=== PATIENT | female | born 1940 | race Caucasian/White ===

== ENCOUNTER 2016-07-04 17:25 | Emergency (ER) | payer MEDICARE ==
[~2016-07-04] VITALS: Ht 167.6 cm; Wt 70.3 kg
[~2016-07-04 17:25] MED LIST: ALBU17IN INH; ALEV220C2 PO; ATOR1TAB19 PO; BIMA01SOL OU; CENTTAB47 PO; HYDR-3713 PO; LEVO112T2 PO; PRIL20CA9 PO; SYMB16INH INH
[2016-07-04 17:26] VITALS: BP 145/92
[2016-07-04] MEDS ORDERED: LIDOCAINE 2% MDV 20 ML VIAL SC ONE (18:15)
[2016-07-04] MEDS ORDERED: NEOSPORIN OINT 0.9 GM PKT (FLOOR STOCK) As Ordered ONE (18:40)
[2016-07-04] MEDS ORDERED: ADACEL/BOOSTRIX VACCINE (DIPHTH/PERTUSS/ACELL/TETANUS)0.5ML SYR (90715) IM ONE (18:45)
== END 2016-07-04 19:11 | disposition home or self-care (01) ==
LOC: M ED 18:08
DX: S81.812A Laceration without foreign body, left lower leg, initial encounter (principal); S80.812A Abrasion, left lower leg, initial encounter; S80.12XA Contusion of left lower leg, initial encounter; W10.8XXA Fall (on) (from) other stairs and steps, initial encounter; Y92.018 Other place in single-family (private) house as the place of occurrence of the external cause; Y93.89 Activity, other specified; Y99.8 Other external cause status; J45.909 Unspecified asthma, uncomplicated; K21.9 Gastro-esophageal reflux disease without esophagitis; Z79.899 Other long term (current) drug therapy

== ENCOUNTER → 2016-07-29 | Outpatient (REF) | payer MEDICARE ==
[2016-07-29 20:21] LABS: MICROSCOPIC INDICATED? MAN YES (NO)
[2016-07-29 20:33] LABS: BACTERIA, URINE MOD AMOUNT; HYALINE CAST, URINE NONE SEEN /lpf (0-1); SQUAMOUS EPITHELIAL CELL URINE SMALL AMOUNT /hpf (SMALL AMT); WBC, URINE 15-20 /hpf (0-3)
[2016-07-29 20:34] LABS: MICROSCOPIC EXAM PERFORMED
== END ==
LOC: M LAB REF 17:03
PROVIDERS: ATTEND Nurse Practitioner Women's Health
DX: N39.0 Urinary tract infection, site not specified (principal)

== ENCOUNTER → 2016-08-28 | Outpatient (REF) | payer MEDICARE | LOC: M LAB REF 16:31 | PROVIDERS: ATTEND Obstetrics & Gynecology | DX: N39.0 Urinary tract infection, site not specified (principal) ==

== ENCOUNTER 2017-03-03 10:37 | Inpatient (IN) | payer MEDICARE ==
[2017-03-03] MEDS: IPRATROPIUM 0.5MG/ALBUTEROL 2.5MG INH SOL UD 3ML (DUONEB)(J7620) NEB ×5 (11:13→21:01)
[2017-03-03] MEDS: methylPREDNISolone INJ 125 MG/2 ML VIAL (J2930) IV ×2 (11:17→22:06)
[2017-03-03 11:26] LABS: BASO # 0.1 10^3/uL (0.0-0.2); BASO % 0.5 % (0.0-1.0); EOS % 0.1 % (0.0-3.0); HEMATOCRIT 44.4 % (36.0-47.0); HEMOGLOBIN 15.1 g/dl (12.0-16.0); IMMATURE GRANULOCYTE # 0.1 10^3/uL (0-0); IMMATURE GRANULOCYTE % 0.5 % (0-0); LYMPH # 0.5 10^3/uL (1.5-4.5); LYMPH % 4.5 % (24.0-44.0); MEAN CORPUSCULAR HEMOGLOBIN 31.9 pg (27.0-33.0); MEAN CORPUSCULAR VOLUME 93.7 fl (80.0-96.0); MONO # 0.7 10^3/uL (0.0-0.8); MONO % 6.3 % (0.0-5.0); NEUTROPHILS # 10.3 10^3/uL (1.8-7.7); NEUTROPHILS % 88.1 % (36.0-66.0); PLATELET COUNT, AUTOMATED 265 10^3/uL (150-450); RED BLOOD COUNT 4.74 10^6/uL (4.00-5.40); RED CELL DISTRIBUTION WIDTH 13.2 % (11.5-14.5); WHITE BLOOD COUNT 11.7 10^3/uL (4.0-10.0)
[2017-03-03 11:27] LABS: ABG BASE EXCESS -1.3 (-2.0-2.0); ABG O2 SATURATION 99.2 % (95.0-99.0); ABG PARTIAL PRESSURE CO2 33.2 mmHg (35.0-45.0); ABG PARTIAL PRESSURE O2 142.3 mmHg (75.0-100.0); ABG STANDARD HCO3 23.5 MEQ/L (22.0-26.0); ABG TOTAL CO2 23.1 MEQ/L (23.0-31.0)
[2017-03-03 11:42] LABS: ALBUMIN 3.8 GM/DL (3.2-5.2); ALBUMIN/GLOBULIN RATIO 1.09 (1.00-1.93); ALKALINE PHOSPHATASE 124 U/L (45-117); ALT/SGPT 26 U/L (12-78); ANION GAP 8 MEQ/L (8-16); AST/SGOT 20 U/L (7-37); BILIRUBIN,DIRECT 0.2 MG/DL (0.0-0.2); BILIRUBIN,TOTAL 0.6 MG/DL (0.2-1.0); BLOOD UREA NITROGEN 16 MG/DL (7-18); CALCIUM LEVEL 8.6 MG/DL (8.8-10.2); CARBON DIOXIDE LEVEL 26 MEQ/L (21-32); CHLORIDE LEVEL 105 MEQ/L (98-107); CK-MB VALUE MASS 6.2 NG/ML (0.0-3.6); CPK CREATINE PHOSPHOKINASE 221 U/L (26-192); GLOMERULAR FILTRATION RATE > 60.0 (>39); GLUCOSE, FASTING 121 MG/DL (83-110); NT-PRO BNP 208 PG/ML (<450); SODIUM LEVEL 139 MEQ/L (136-145); TOTAL PROTEIN 7.3 GM/DL (6.4-8.2); TROPONIN I < 0.02 NG/ML (< 0.10)
[2017-03-03] MEDS ORDERED: CLOBETASOL PROPIONATE EMOLLIENT 0.05% CR 60 GM TOP (14:45)
[2017-03-03] MEDS ORDERED: IPRATROPIUM 0.5MG/ALBUTEROL 2.5MG INH SOL UD 3ML (DUONEB)(J7620) NEB (14:45)
[2017-03-03] MEDS ORDERED: ONDANSETRON 4MG/2ML VIAL (J2405) IV (14:45)
[2017-03-03] MEDS ORDERED: ACETAMINOPHEN TAB 650MG DOSE (2X325MG) PO (14:45)
[2017-03-03] MEDS: AZITHROMYCIN INJ 500 MG, VIAL MATE ADAPTER 1 EACH in D5W 250 ML IV (17:53)
[2017-03-03] MEDS: ENOXAPARIN 30 MG/0.3 ML SYR (J1650) SC (17:54)
[2017-03-03] MEDS: BENZONATATE 100 MG CAP PO ×2 (17:59→22:06)
[2017-03-03 20:18] LABS: C REACTIVE PROTEIN QUANTITATIV < 0.30 MG/DL (0.00-0.30)
[2017-03-03 20:34] LABS: CK-MB VALUE MASS 4.9 NG/ML (0.0-3.6); CPK CREATINE PHOSPHOKINASE 205 U/L (26-192); MB/CK RELATIVE INDEX 2.39 (< OR =4); TROPONIN I < 0.02 NG/ML (< 0.10)
[2017-03-03] MEDS: DOCUSATE SODIUM 100 MG CAP PO (21:00)
[2017-03-03] MEDS: SYMBICORT 160/4.5MCG INHALER 6GM INH (21:06)
[2017-03-04] MEDS: IPRATROPIUM 0.5MG/ALBUTEROL 2.5MG INH SOL UD 3ML (DUONEB)(J7620) NEB ×2 (00:15→08:23)
[2017-03-04] MEDS: BENZONATATE 100 MG CAP PO ×2 (05:15→09:06)
[2017-03-04] MEDS: LEVOTHYROXINE 100MCG TABLET (0.1MG) PO (05:18)
[2017-03-04 07:54] LABS: BASO % 0.2 % (0.0-1.0); HEMATOCRIT 44.4 % (36.0-47.0); HEMOGLOBIN 14.5 g/dl (12.0-16.0); IMMATURE GRANULOCYTE # 0.1 10^3/uL (0-0); IMMATURE GRANULOCYTE % 0.7 % (0-0); LYMPH # 0.8 10^3/uL (1.5-4.5); LYMPH % 7.3 % (24.0-44.0); MEAN CORPUSCULAR HEMOGLOBIN 30.7 pg (27.0-33.0); MEAN CORPUSCULAR HGB CONC 32.7 g/dl (32.0-36.5); MEAN CORPUSCULAR VOLUME 94.1 fl (80.0-96.0); MONO % 8.7 % (0.0-5.0); NEUTROPHILS # 9.1 10^3/uL (1.8-7.7); NEUTROPHILS % 83.1 % (36.0-66.0); PLATELET COUNT, AUTOMATED 281 10^3/uL (150-450); RED BLOOD COUNT 4.72 10^6/uL (4.00-5.40); RED CELL DISTRIBUTION WIDTH 13.4 % (11.5-14.5)
[2017-03-04 07:55] LABS: ANION GAP 8 MEQ/L (8-16); BLOOD UREA NITROGEN 13 MG/DL (7-18); C REACTIVE PROTEIN QUANTITATIV < 0.30 MG/DL (0.00-0.30); CALCIUM LEVEL 8.9 MG/DL (8.8-10.2); CARBON DIOXIDE LEVEL 26 MEQ/L (21-32); CHLORIDE LEVEL 105 MEQ/L (98-107); GLOMERULAR FILTRATION RATE > 60.0 (>39); GLUCOSE, FASTING 111 MG/DL (83-110); POTASSIUM SERUM 4.2 MEQ/L (3.5-5.1); SODIUM LEVEL 139 MEQ/L (136-145)
[2017-03-04] MEDS: SYMBICORT 160/4.5MCG INHALER 6GM INH (08:23)
[2017-03-04] MEDS: ENOXAPARIN 30 MG/0.3 ML SYR (J1650) SC (09:06)
[2017-03-04] MEDS: ATORVASTATIN 10 MG TAB PO (09:06)
[2017-03-04] MEDS: predniSONE 20 MG TAB PO (09:06)
[2017-03-04] MEDS: DOCUSATE SODIUM 100 MG CAP PO (09:07)
== END 2017-03-04 11:00 | disposition home or self-care (01) | DRG 203 ==
LOC: M ED INP 03-04 10:09 → M PED 03-04 10:16 → M ED 10:37 → M ED INP 15:09 → M PED 17:11
DX: J45.901 Unspecified asthma with (acute) exacerbation (principal); E03.9 Hypothyroidism, unspecified; E78.5 Hyperlipidemia, unspecified; K44.9 Diaphragmatic hernia without obstruction or gangrene; B97.4 Respiratory syncytial virus as the cause of diseases classified elsewhere; Z79.899 Other long term (current) drug therapy

== ENCOUNTER 2017-04-19 13:05 | Emergency (ER) | payer MEDICARE ==
[2017-04-19 14:37] LABS: BASO # 0.1 10^3/uL (0.0-0.2); BASO % 1.7 % (0.0-1.0); EOS # 0.5 10^3/uL (0.0-0.50); EOS % 7.6 % (0.0-3.0); HEMATOCRIT 46.3 % (36.0-47.0); HEMOGLOBIN 15.5 g/dl (12.0-16.0); IMMATURE GRANULOCYTE % 0.1 % (0-3.0); LYMPH # 1.6 10^3/uL (1.5-4.5); LYMPH % 22.6 % (24.0-44.0); MEAN CORPUSCULAR HEMOGLOBIN 31.2 pg (27.0-33.0); MEAN CORPUSCULAR HGB CONC 33.5 g/dl (32.0-36.5); MEAN CORPUSCULAR VOLUME 93.2 fl (80.0-96.0); MONO # 0.7 10^3/uL (0.0-0.8); MONO % 10.2 % (0.0-5.0); NEUTROPHILS % 57.8 % (36.0-66.0); PLATELET COUNT, AUTOMATED 276 10^3/uL (150-450); RED BLOOD COUNT 4.97 10^6/uL (4.00-5.40); RED CELL DISTRIBUTION WIDTH 12.8 % (11.5-14.5)
[2017-04-19 15:05] LABS: ALBUMIN 4.1 GM/DL (3.2-5.2); ALBUMIN/GLOBULIN RATIO 1.21 (1.00-1.93); ALKALINE PHOSPHATASE 118 U/L (45-117); ALT/SGPT 27 U/L (12-78); ANION GAP 7 MEQ/L (8-16); AST/SGOT 23 U/L (7-37); BILIRUBIN,DIRECT 0.3 MG/DL (0.0-0.2); BILIRUBIN,TOTAL 1.1 MG/DL (0.2-1.0); BLOOD UREA NITROGEN 19 MG/DL (7-18); CALCIUM LEVEL 9.6 MG/DL (8.8-10.2); CARBON DIOXIDE LEVEL 27 MEQ/L (21-32); CHLORIDE LEVEL 105 MEQ/L (98-107); CREATININE FOR GFR 0.67 MG/DL (0.55-1.30); GLOMERULAR FILTRATION RATE > 60.0 (>39); GLUCOSE, FASTING 104 MG/DL (70-100); LIPASE 194 U/L (73-393); POTASSIUM SERUM 4.4 MEQ/L (3.5-5.1); SODIUM LEVEL 139 MEQ/L (136-145); TOTAL PROTEIN 7.5 GM/DL (6.4-8.2)
[2017-04-19] MEDS: ACETAMINOPHEN 325 MG TAB PO (15:30)
== END 2017-04-19 15:47 | disposition home or self-care (01) ==
LOC: M ED 13:05
DX: R10.30 Lower abdominal pain, unspecified (principal); R19.7 Diarrhea, unspecified; I10 Essential (primary) hypertension; R74.8 Abnormal levels of other serum enzymes; E80.6 Other disorders of bilirubin metabolism; J45.909 Unspecified asthma, uncomplicated; J44.9 Chronic obstructive pulmonary disease, unspecified; E03.9 Hypothyroidism, unspecified; K21.9 Gastro-esophageal reflux disease without esophagitis; E78.5 Hyperlipidemia, unspecified; M81.0 Age-related osteoporosis without current pathological fracture; Z87.891 Personal history of nicotine dependence
CPT/HCPCS: 83690

== ENCOUNTER → 2017-07-09 | Outpatient (CLI) | payer MEDICARE ==
[2017-07-09 15:50] LABS: BASO # 0.1 10^3/uL (0.0-0.2); BASO % 1.4 % (0.0-1.0); EOS # 0.5 10^3/uL (0.0-0.50); EOS % 7.1 % (0.0-3.0); HEMATOCRIT 45.3 % (36.0-47.0); HEMOGLOBIN 14.7 g/dl (12.0-15.5); IMMATURE GRANULOCYTE % 0.2 % (0-3.0); LYMPH # 1.5 10^3/uL (1.5-4.5); LYMPH % 23.5 % (24.0-44.0); MEAN CORPUSCULAR HEMOGLOBIN 30.7 pg (27.0-33.0); MEAN CORPUSCULAR HGB CONC 32.5 g/dl (32.0-36.5); MEAN CORPUSCULAR VOLUME 94.6 fl (80.0-96.0); MONO # 0.7 10^3/uL (0.0-0.8); MONO % 11.6 % (0.0-5.0); NEUTROPHILS # 3.6 10^3/uL (1.8-7.7); NEUTROPHILS % 56.2 % (36.0-66.0); PLATELET COUNT, AUTOMATED 275 10^3/uL (150-450); RED BLOOD COUNT 4.79 10^6/uL (4.00-5.40); RED CELL DISTRIBUTION WIDTH 12.8 % (11.5-14.5); WHITE BLOOD COUNT 6.4 10^3/uL (4.0-10.0)
[2017-07-09 16:14] LABS: ALBUMIN 3.9 GM/DL (3.2-5.2); ALBUMIN/GLOBULIN RATIO 1.08 (1.00-1.93); ALKALINE PHOSPHATASE 51 U/L (45-117); ALT/SGPT 19 U/L (12-78); ANION GAP 6 MEQ/L (8-16); AST/SGOT 20 U/L (7-37); BILIRUBIN,TOTAL 0.6 MG/DL (0.2-1.0); BLOOD UREA NITROGEN 13 MG/DL (7-18); CALCIUM LEVEL 9.3 MG/DL (8.8-10.2); CARBON DIOXIDE LEVEL 29 MEQ/L (21-32); CHLORIDE LEVEL 107 MEQ/L (98-107); CREATININE FOR GFR 0.78 MG/DL (0.55-1.30); GLOMERULAR FILTRATION RATE > 60.0 (>39); GLUCOSE, FASTING 88 MG/DL (70-100); POTASSIUM SERUM 4.2 MEQ/L (3.5-5.1); SODIUM LEVEL 142 MEQ/L (136-145); TOTAL PROTEIN 7.5 GM/DL (6.4-8.2)
== END ==
LOC: M LAB 15:19
DX: R94.5 Abnormal results of liver function studies (principal); K80.20 Calculus of gallbladder without cholecystitis without obstruction; R10.84 Generalized abdominal pain
CPT/HCPCS: 80053

== ENCOUNTER → 2017-07-16 | Outpatient (CLI) | payer MEDICARE | LOC: M RAD 07:52 | DX: R10.9 Unspecified abdominal pain (principal); K82.8 Other specified diseases of gallbladder | CPT/HCPCS: 76705 ==

== ENCOUNTER → 2017-07-28 | Outpatient (CLI) | payer MEDICARE ==
[2017-07-28 11:15] LABS: CORTISOL AM 0.6 UG/DL (4.3-22.4)
[2017-07-31 14:14] LABS: ALDOS/RENIN RATIO 3.9 (0.0-30.0); ALDOSTERONE 23.3 ng/dL (0.0-30.0); RENIN ACTIVITY 6.018 ng/mL/hr (0.167-5.380)
== END ==
LOC: M LAB 09:54
DX: E27.9 Disorder of adrenal gland, unspecified (principal)
CPT/HCPCS: 84244

== ENCOUNTER 2017-07-29 15:26 | Inpatient (IN) | payer MEDICARE ==
[2017-07-29] MEDS: LIDOCAINE 1% MDV 20ML VIAL IM (17:20)
[2017-07-29] MEDS: ONDANSETRON 4MG/2ML VIAL (J2405) IV (17:45)
[2017-07-29] MEDS: NS 1,000 ML IV ×2 (17:45→21:45)
[2017-07-29] MEDS: MORPHINE 4 MG/ML 1ML VIAL/SYRINGE (J2270) IV (17:50)
[2017-07-29 20:37] LABS: BASO # 0.1 10^3/uL (0.0-0.2); BASO % 0.7 % (0.0-1.0); EOS # 0.1 10^3/uL (0.0-0.50); EOS % 1.1 % (0.0-3.0); HEMATOCRIT 40.4 % (36.0-47.0); HEMOGLOBIN 13.3 g/dl (12.0-15.5); IMMATURE GRANULOCYTE % 0.2 % (0-3.0); LYMPH # 1.2 10^3/uL (1.5-4.5); LYMPH % 10.9 % (24.0-44.0); MEAN CORPUSCULAR HEMOGLOBIN 30.9 pg (27.0-33.0); MEAN CORPUSCULAR HGB CONC 32.9 g/dl (32.0-36.5); MONO # 0.9 10^3/uL (0.0-0.8); MONO % 7.9 % (0.0-5.0); NEUTROPHILS # 8.8 10^3/uL (1.8-7.7); NEUTROPHILS % 79.2 % (36.0-66.0); PLATELET COUNT, AUTOMATED 243 10^3/uL (150-450); RED CELL DISTRIBUTION WIDTH 12.4 % (11.5-14.5); WHITE BLOOD COUNT 11.1 10^3/uL (4.0-10.0)
[2017-07-29 21:20] LABS: ALBUMIN 3.3 GM/DL (3.2-5.2); ALKALINE PHOSPHATASE 37 U/L (45-117); ALT/SGPT 17 U/L (12-78); ANION GAP 6 MEQ/L (8-16); AST/SGOT 18 U/L (7-37); BILIRUBIN,TOTAL 0.8 MG/DL (0.2-1.0); BLOOD UREA NITROGEN 18 MG/DL (7-18); CALCIUM LEVEL 7.9 MG/DL (8.8-10.2); CARBON DIOXIDE LEVEL 26 MEQ/L (21-32); CHLORIDE LEVEL 108 MEQ/L (98-107); CREATININE FOR GFR 0.63 MG/DL (0.55-1.30); GLOMERULAR FILTRATION RATE > 60.0 (>39); GLUCOSE, FASTING 114 MG/DL (70-100); POTASSIUM SERUM 4.1 MEQ/L (3.5-5.1); SODIUM LEVEL 140 MEQ/L (136-145); TOTAL PROTEIN 6.3 GM/DL (6.4-8.2)
[2017-07-30] MEDS: NS 1,000 ML IV ×2 (01:45→05:45)
[2017-07-30] MEDS: PERCOCET 5MG/325MG TAB PO (08:42)
[2017-07-30] MEDS: PNEUMOCOCCAL VACCINE 0.5ML SYRINGE(90732) PNEUMOVAX 23 IM (08:46)
[2017-07-30] MEDS: CLOBETASOL PROPIONATE EMOLLIENT 0.05% CR 60 GM TOP (09:00)
[2017-07-30] MEDS ORDERED: ALBUTEROL 90 MCG/ACT 8GM HFA INHALER INH (12:45)
[2017-07-30] MEDS: LEVOTHYROXINE 100MCG TABLET (0.1MG) PO (14:07)
[2017-07-30] MEDS: LISINOPRIL 5 MG TAB PO (14:07)
[2017-07-30] MEDS: ENOXAPARIN 40 MG/0.4 ML SYRINGE (J1650) SC (14:08)
[2017-07-30] MEDS: SYMBICORT 160/4.5MCG INHALER 6GM INH (17:35)
[2017-07-30] MEDS: ATORVASTATIN 10 MG TAB PO (20:24)
[2017-07-31] MEDS: SYMBICORT 160/4.5MCG INHALER 6GM INH ×3 (00:25→20:21)
[2017-07-31] MEDS: LEVOTHYROXINE 100MCG TABLET (0.1MG) PO (05:18)
[2017-07-31] MEDS: PERCOCET 5MG/325MG TAB PO ×2 (08:19→18:30)
[2017-07-31] MEDS: LISINOPRIL 5 MG TAB PO (08:19)
[2017-07-31] MEDS: ENOXAPARIN 40 MG/0.4 ML SYRINGE (J1650) SC (08:20)
[2017-07-31] MEDS: CLOBETASOL PROPIONATE EMOLLIENT 0.05% CR 60 GM TOP (08:21)
[2017-07-31] MEDS: ATORVASTATIN 10 MG TAB PO (21:47)
[2017-08-01] MEDS: PERCOCET 5MG/325MG TAB PO (05:34)
[2017-08-01] MEDS: LEVOTHYROXINE 100MCG TABLET (0.1MG) PO (05:34)
[2017-08-01] MEDS: SYMBICORT 160/4.5MCG INHALER 6GM INH ×2 (07:52→21:00)
[2017-08-01 08:01] LABS: BASO # 0.1 10^3/uL (0.0-0.2); EOS # 0.3 10^3/uL (0.0-0.50); EOS % 4.9 % (0.0-3.0); HEMATOCRIT 39.5 % (36.0-47.0); HEMOGLOBIN 12.7 g/dl (12.0-15.5); IMMATURE GRANULOCYTE % 0.3 % (0-3.0); LYMPH # 1.7 10^3/uL (1.5-4.5); MEAN CORPUSCULAR HEMOGLOBIN 30.5 pg (27.0-33.0); MEAN CORPUSCULAR HGB CONC 32.2 g/dl (32.0-36.5); MONO # 0.9 10^3/uL (0.0-0.8); MONO % 12.8 % (0.0-5.0); PLATELET COUNT, AUTOMATED 229 10^3/uL (150-450); RED BLOOD COUNT 4.16 10^6/uL (4.00-5.40); RED CELL DISTRIBUTION WIDTH 12.4 % (11.5-14.5)
[2017-08-01 08:25] LABS: ALBUMIN 2.9 GM/DL (3.2-5.2); ALBUMIN/GLOBULIN RATIO 0.83 (1.00-1.93); ALKALINE PHOSPHATASE 35 U/L (45-117); ALT/SGPT 13 U/L (12-78); ANION GAP 4 MEQ/L (8-16); AST/SGOT 14 U/L (7-37); BILIRUBIN,TOTAL 0.7 MG/DL (0.2-1.0); BLOOD UREA NITROGEN 17 MG/DL (7-18); CALCIUM LEVEL 8.6 MG/DL (8.8-10.2); CARBON DIOXIDE LEVEL 29 MEQ/L (21-32); CHLORIDE LEVEL 105 MEQ/L (98-107); CREATININE FOR GFR 0.78 MG/DL (0.55-1.30); GLOMERULAR FILTRATION RATE > 60.0 (>39); GLUCOSE, FASTING 87 MG/DL (70-100); MAGNESIUM LEVEL 2.2 MG/DL (1.8-2.4); POTASSIUM SERUM 4.3 MEQ/L (3.5-5.1); SODIUM LEVEL 138 MEQ/L (136-145); TOTAL PROTEIN 6.4 GM/DL (6.4-8.2)
[2017-08-01] MEDS: CLOBETASOL PROPIONATE EMOLLIENT 0.05% CR 60 GM TOP (09:00)
[2017-08-01] MEDS: LISINOPRIL 5 MG TAB PO (09:44)
[2017-08-01] MEDS: ENOXAPARIN 40 MG/0.4 ML SYRINGE (J1650) SC (09:45)
[2017-08-01] MEDS: ATORVASTATIN 10 MG TAB PO (21:59)
[2017-08-02] MEDS: LEVOTHYROXINE 100MCG TABLET (0.1MG) PO (06:06)
[2017-08-02] MEDS: SYMBICORT 160/4.5MCG INHALER 6GM INH ×2 (08:25→20:24)
[2017-08-02] MEDS: LISINOPRIL 5 MG TAB PO (08:34)
[2017-08-02] MEDS: ENOXAPARIN 40 MG/0.4 ML SYRINGE (J1650) SC (08:34)
[2017-08-02] MEDS: CLOBETASOL PROPIONATE EMOLLIENT 0.05% CR 60 GM TOP (08:34)
[2017-08-02] MEDS: ATORVASTATIN 10 MG TAB PO (20:41)
[2017-08-03] MEDS: LEVOTHYROXINE 100MCG TABLET (0.1MG) PO (05:13)
[2017-08-03] MEDS: SYMBICORT 160/4.5MCG INHALER 6GM INH ×2 (08:20→21:10)
[2017-08-03] MEDS: CLOBETASOL PROPIONATE EMOLLIENT 0.05% CR 60 GM TOP (10:07)
[2017-08-03] MEDS: ENOXAPARIN 40 MG/0.4 ML SYRINGE (J1650) SC (10:31)
[2017-08-03] MEDS: LISINOPRIL 5 MG TAB PO (10:31)
[2017-08-03] MEDS: ATORVASTATIN 10 MG TAB PO (22:26)
[2017-08-04] MEDS: PERCOCET 5MG/325MG TAB PO ×2 (02:59→22:58)
[2017-08-04] MEDS: LEVOTHYROXINE 100MCG TABLET (0.1MG) PO (06:58)
[2017-08-04] MEDS: SYMBICORT 160/4.5MCG INHALER 6GM INH ×2 (08:31→19:43)
[2017-08-04 08:34] LABS: BASO # 0.1 10^3/uL (0.0-0.2); EOS # 0.3 10^3/uL (0.0-0.50); EOS % 5.1 % (0.0-3.0); IMMATURE GRANULOCYTE % 0.3 % (0-3.0); LYMPH # 1.3 10^3/uL (1.5-4.5); LYMPH % 21.9 % (24.0-44.0); MEAN CORPUSCULAR HEMOGLOBIN 30.6 pg (27.0-33.0); MEAN CORPUSCULAR HGB CONC 32.5 g/dl (32.0-36.5); MEAN CORPUSCULAR VOLUME 94.1 fl (80.0-96.0); MONO # 0.8 10^3/uL (0.0-0.8); MONO % 12.8 % (0.0-5.0); NEUTROPHILS # 3.5 10^3/uL (1.8-7.7); NEUTROPHILS % 58.9 % (36.0-66.0); PLATELET COUNT, AUTOMATED 246 10^3/uL (150-450); RED BLOOD COUNT 4.25 10^6/uL (4.00-5.40); RED CELL DISTRIBUTION WIDTH 12.5 % (11.5-14.5); WHITE BLOOD COUNT 5.9 10^3/uL (4.0-10.0)
[2017-08-04 08:54] LABS: ANION GAP 6 MEQ/L (8-16); BLOOD UREA NITROGEN 15 MG/DL (7-18); CALCIUM LEVEL 8.8 MG/DL (8.8-10.2); CARBON DIOXIDE LEVEL 30 MEQ/L (21-32); CHLORIDE LEVEL 104 MEQ/L (98-107); CREATININE FOR GFR 0.71 MG/DL (0.55-1.30); GLOMERULAR FILTRATION RATE > 60.0 (>39); GLUCOSE, FASTING 91 MG/DL (70-100); MAGNESIUM LEVEL 2.1 MG/DL (1.8-2.4); SODIUM LEVEL 140 MEQ/L (136-145)
[2017-08-04] MEDS: CLOBETASOL PROPIONATE EMOLLIENT 0.05% CR 60 GM TOP (09:10)
[2017-08-04] MEDS: ENOXAPARIN 40 MG/0.4 ML SYRINGE (J1650) SC (09:10)
[2017-08-04] MEDS: LISINOPRIL 5 MG TAB PO (09:10)
[2017-08-04] MEDS: ATORVASTATIN 10 MG TAB PO (22:57)
[2017-08-05 06:50] LABS: BASO # 0.1 10^3/uL (0.0-0.2); BASO % 1.1 % (0.0-1.0); EOS # 0.4 10^3/uL (0.0-0.50); EOS % 5.9 % (0.0-3.0); HEMOGLOBIN 13.7 g/dl (12.0-15.5); IMMATURE GRANULOCYTE % 0.5 % (0-3.0); LYMPH # 1.8 10^3/uL (1.5-4.5); LYMPH % 28.1 % (24.0-44.0); MEAN CORPUSCULAR HEMOGLOBIN 30.9 pg (27.0-33.0); MEAN CORPUSCULAR HGB CONC 32.6 g/dl (32.0-36.5); MEAN CORPUSCULAR VOLUME 94.8 fl (80.0-96.0); MONO # 0.8 10^3/uL (0.0-0.8); MONO % 11.9 % (0.0-5.0); NEUTROPHILS # 3.3 10^3/uL (1.8-7.7); NEUTROPHILS % 52.5 % (36.0-66.0); PLATELET COUNT, AUTOMATED 266 10^3/uL (150-450); RED BLOOD COUNT 4.43 10^6/uL (4.00-5.40); RED CELL DISTRIBUTION WIDTH 12.4 % (11.5-14.5); WHITE BLOOD COUNT 6.3 10^3/uL (4.0-10.0)
[2017-08-05] MEDS: LEVOTHYROXINE 100MCG TABLET (0.1MG) PO (06:50)
[2017-08-05 07:11] LABS: ANION GAP 8 MEQ/L (8-16); BLOOD UREA NITROGEN 17 MG/DL (7-18); CALCIUM LEVEL 8.8 MG/DL (8.8-10.2); CARBON DIOXIDE LEVEL 27 MEQ/L (21-32); CHLORIDE LEVEL 105 MEQ/L (98-107); CREATININE FOR GFR 0.71 MG/DL (0.55-1.30); GLOMERULAR FILTRATION RATE > 60.0 (>39); GLUCOSE, FASTING 92 MG/DL (70-100); MAGNESIUM LEVEL 2.3 MG/DL (1.8-2.4); POTASSIUM SERUM 4.1 MEQ/L (3.5-5.1); SODIUM LEVEL 140 MEQ/L (136-145)
[2017-08-05] MEDS: SYMBICORT 160/4.5MCG INHALER 6GM INH ×2 (07:51→09:48)
[2017-08-05] MEDS: LISINOPRIL 5 MG TAB PO (08:57)
[2017-08-05] MEDS: ENOXAPARIN 40 MG/0.4 ML SYRINGE (J1650) SC (08:59)
[2017-08-05] MEDS: CLOBETASOL PROPIONATE EMOLLIENT 0.05% CR 60 GM TOP (09:00)
[2017-08-05] MEDS: PERCOCET 5MG/325MG TAB PO (20:21)
[2017-08-05] MEDS: ATORVASTATIN 10 MG TAB PO (20:21)
[2017-08-06] MEDS: LEVOTHYROXINE 100MCG TABLET (0.1MG) PO (05:44)
[2017-08-06 06:52] LABS: BASO # 0.1 10^3/uL (0.0-0.2); BASO % 1.4 % (0.0-1.0); EOS # 0.3 10^3/uL (0.0-0.50); EOS % 6.1 % (0.0-3.0); HEMATOCRIT 38.9 % (36.0-47.0); HEMOGLOBIN 12.7 g/dl (12.0-15.5); IMMATURE GRANULOCYTE % 0.5 % (0-3.0); LYMPH # 1.6 10^3/uL (1.5-4.5); LYMPH % 28.4 % (24.0-44.0); MEAN CORPUSCULAR HEMOGLOBIN 30.6 pg (27.0-33.0); MEAN CORPUSCULAR HGB CONC 32.6 g/dl (32.0-36.5); MEAN CORPUSCULAR VOLUME 93.7 fl (80.0-96.0); MONO # 0.7 10^3/uL (0.0-0.8); MONO % 11.8 % (0.0-5.0); NEUTROPHILS # 2.9 10^3/uL (1.8-7.7); NEUTROPHILS % 51.8 % (36.0-66.0); PLATELET COUNT, AUTOMATED 240 10^3/uL (150-450); RED BLOOD COUNT 4.15 10^6/uL (4.00-5.40); RED CELL DISTRIBUTION WIDTH 12.3 % (11.5-14.5); WHITE BLOOD COUNT 5.6 10^3/uL (4.0-10.0)
[2017-08-06 07:26] LABS: ANION GAP 7 MEQ/L (8-16); BLOOD UREA NITROGEN 17 MG/DL (7-18); CALCIUM LEVEL 8.6 MG/DL (8.8-10.2); CARBON DIOXIDE LEVEL 29 MEQ/L (21-32); CHLORIDE LEVEL 105 MEQ/L (98-107); CREATININE FOR GFR 0.65 MG/DL (0.55-1.30); GLOMERULAR FILTRATION RATE > 60.0 (>39); GLUCOSE, FASTING 81 MG/DL (70-100); MAGNESIUM LEVEL 2.2 MG/DL (1.8-2.4); POTASSIUM SERUM 3.8 MEQ/L (3.5-5.1); SODIUM LEVEL 141 MEQ/L (136-145)
[2017-08-06] MEDS: SYMBICORT 160/4.5MCG INHALER 6GM INH ×2 (08:32→21:20)
[2017-08-06] MEDS: CLOBETASOL PROPIONATE EMOLLIENT 0.05% CR 60 GM TOP (09:00)
[2017-08-06] MEDS: LISINOPRIL 5 MG TAB PO (09:25)
[2017-08-06] MEDS: ENOXAPARIN 40 MG/0.4 ML SYRINGE (J1650) SC (09:27)
[2017-08-06] MEDS: ATORVASTATIN 10 MG TAB PO (19:48)
[2017-08-06] MEDS: PERCOCET 5MG/325MG TAB PO (19:48)
[2017-08-06] MEDS: BIMATOPROST EYE OU (19:50)
[2017-08-06] MEDS: OLOPATADINE EYE OU ×2 (19:50→19:51)
[2017-08-07] MEDS: LEVOTHYROXINE 100MCG TABLET (0.1MG) PO (05:09)
[2017-08-07 06:50] LABS: BASO # 0.1 10^3/uL (0.0-0.2); EOS # 0.3 10^3/uL (0.0-0.50); EOS % 5.7 % (0.0-3.0); HEMATOCRIT 40.1 % (36.0-47.0); HEMOGLOBIN 13.1 g/dl (12.0-15.5); IMMATURE GRANULOCYTE % 0.7 % (0-3.0); LYMPH # 1.5 10^3/uL (1.5-4.5); LYMPH % 25.5 % (24.0-44.0); MEAN CORPUSCULAR HEMOGLOBIN 30.8 pg (27.0-33.0); MEAN CORPUSCULAR HGB CONC 32.7 g/dl (32.0-36.5); MEAN CORPUSCULAR VOLUME 94.1 fl (80.0-96.0); MONO # 0.7 10^3/uL (0.0-0.8); MONO % 12.2 % (0.0-5.0); NEUTROPHILS # 3.3 10^3/uL (1.8-7.7); NEUTROPHILS % 54.9 % (36.0-66.0); PLATELET COUNT, AUTOMATED 259 10^3/uL (150-450); RED BLOOD COUNT 4.26 10^6/uL (4.00-5.40); RED CELL DISTRIBUTION WIDTH 12.3 % (11.5-14.5)
[2017-08-07 07:09] LABS: ANION GAP 9 MEQ/L (8-16); BLOOD UREA NITROGEN 14 MG/DL (7-18); CALCIUM LEVEL 8.6 MG/DL (8.8-10.2); CARBON DIOXIDE LEVEL 22 MEQ/L (21-32); CHLORIDE LEVEL 107 MEQ/L (98-107); CREATININE FOR GFR 0.65 MG/DL (0.55-1.30); GLOMERULAR FILTRATION RATE > 60.0 (>39); GLUCOSE, FASTING 82 MG/DL (70-100); MAGNESIUM LEVEL 2.3 MG/DL (1.8-2.4); POTASSIUM SERUM 4.4 MEQ/L (3.5-5.1); SODIUM LEVEL 138 MEQ/L (136-145)
[2017-08-07] MEDS: CLOBETASOL PROPIONATE EMOLLIENT 0.05% CR 60 GM TOP (09:00)
[2017-08-07] MEDS: SYMBICORT 160/4.5MCG INHALER 6GM INH ×2 (09:27→20:03)
[2017-08-07] MEDS: LISINOPRIL 5 MG TAB PO (09:53)
[2017-08-07] MEDS: CEPHALEXIN 500 MG CAP PO ×3 (14:12→20:39)
[2017-08-07] MEDS: ATORVASTATIN 10 MG TAB PO (20:39)
[2017-08-07] MEDS: PERCOCET 5MG/325MG TAB PO (20:39)
[2017-08-07] MEDS: OLOPATADINE EYE OU (20:39)
[2017-08-07] MEDS: BIMATOPROST EYE OU (20:39)
[2017-08-08] MEDS: LEVOTHYROXINE 100MCG TABLET (0.1MG) PO (05:13)
[2017-08-08 06:15] LABS: BASO # 0.1 10^3/uL (0.0-0.2); BASO % 1.1 % (0.0-1.0); EOS # 0.3 10^3/uL (0.0-0.50); EOS % 4.9 % (0.0-3.0); HEMATOCRIT 39.8 % (36.0-47.0); IMMATURE GRANULOCYTE % 0.3 % (0-3.0); LYMPH # 1.5 10^3/uL (1.5-4.5); LYMPH % 24.4 % (24.0-44.0); MEAN CORPUSCULAR HEMOGLOBIN 30.5 pg (27.0-33.0); MEAN CORPUSCULAR HGB CONC 32.7 g/dl (32.0-36.5); MEAN CORPUSCULAR VOLUME 93.4 fl (80.0-96.0); MONO # 0.7 10^3/uL (0.0-0.8); MONO % 11.1 % (0.0-5.0); NEUTROPHILS # 3.7 10^3/uL (1.8-7.7); NEUTROPHILS % 58.2 % (36.0-66.0); PLATELET COUNT, AUTOMATED 295 10^3/uL (150-450); RED BLOOD COUNT 4.26 10^6/uL (4.00-5.40); RED CELL DISTRIBUTION WIDTH 12.3 % (11.5-14.5); WHITE BLOOD COUNT 6.3 10^3/uL (4.0-10.0)
[2017-08-08 06:39] LABS: ANION GAP 5 MEQ/L (8-16); BLOOD UREA NITROGEN 23 MG/DL (7-18); CALCIUM LEVEL 8.8 MG/DL (8.8-10.2); CARBON DIOXIDE LEVEL 29 MEQ/L (21-32); CHLORIDE LEVEL 104 MEQ/L (98-107); CREATININE FOR GFR 0.72 MG/DL (0.55-1.30); GLOMERULAR FILTRATION RATE > 60.0 (>39); GLUCOSE, FASTING 85 MG/DL (70-100); MAGNESIUM LEVEL 2.3 MG/DL (1.8-2.4); SODIUM LEVEL 138 MEQ/L (136-145)
[2017-08-08] MEDS: CEPHALEXIN 500 MG CAP PO ×4 (08:35→20:15)
[2017-08-08] MEDS: CLOBETASOL PROPIONATE EMOLLIENT 0.05% CR 60 GM TOP (08:36)
[2017-08-08] MEDS: LISINOPRIL 5 MG TAB PO (08:36)
[2017-08-08] MEDS: SYMBICORT 160/4.5MCG INHALER 6GM INH ×2 (08:41→19:43)
[2017-08-08] MEDS: PERCOCET 5MG/325MG TAB PO ×2 (12:25→20:17)
[2017-08-08] MEDS: CALCIUM/VITAMIN D 500 MG TAB PO ×2 (12:27→20:16)
[2017-08-08] MEDS: OLOPATADINE EYE OU (20:16)
[2017-08-08] MEDS: BIMATOPROST EYE OU (20:16)
[2017-08-08] MEDS: ATORVASTATIN 10 MG TAB PO (20:16)
[2017-08-09] MEDS: LEVOTHYROXINE 100MCG TABLET (0.1MG) PO (05:45)
[2017-08-09 06:00] LABS: BASO # 0.1 10^3/uL (0.0-0.2); BASO % 1.2 % (0.0-1.0); EOS # 0.3 10^3/uL (0.0-0.50); EOS % 5.6 % (0.0-3.0); HEMATOCRIT 40.2 % (36.0-47.0); HEMOGLOBIN 13.3 g/dl (12.0-15.5); IMMATURE GRANULOCYTE % 0.3 % (0-3.0); LYMPH # 1.5 10^3/uL (1.5-4.5); LYMPH % 25.8 % (24.0-44.0); MEAN CORPUSCULAR HEMOGLOBIN 30.8 pg (27.0-33.0); MEAN CORPUSCULAR HGB CONC 33.1 g/dl (32.0-36.5); MEAN CORPUSCULAR VOLUME 93.1 fl (80.0-96.0); MONO # 0.6 10^3/uL (0.0-0.8); MONO % 10.4 % (0.0-5.0); NEUTROPHILS # 3.3 10^3/uL (1.8-7.7); NEUTROPHILS % 56.7 % (36.0-66.0); PLATELET COUNT, AUTOMATED 290 10^3/uL (150-450); RED BLOOD COUNT 4.32 10^6/uL (4.00-5.40); RED CELL DISTRIBUTION WIDTH 12.1 % (11.5-14.5); WHITE BLOOD COUNT 5.9 10^3/uL (4.0-10.0)
[2017-08-09 06:16] LABS: ANION GAP 7 MEQ/L (8-16); BLOOD UREA NITROGEN 13 MG/DL (7-18); CALCIUM LEVEL 9.7 MG/DL (8.8-10.2); CARBON DIOXIDE LEVEL 30 MEQ/L (21-32); CHLORIDE LEVEL 103 MEQ/L (98-107); CREATININE FOR GFR 0.72 MG/DL (0.55-1.30); GLOMERULAR FILTRATION RATE > 60.0 (>39); GLUCOSE, FASTING 85 MG/DL (70-100); MAGNESIUM LEVEL 1.9 MG/DL (1.8-2.4); POTASSIUM SERUM 4.1 MEQ/L (3.5-5.1); SODIUM LEVEL 140 MEQ/L (136-145)
[2017-08-09] MEDS: SYMBICORT 160/4.5MCG INHALER 6GM INH ×2 (08:31→19:53)
[2017-08-09] MEDS: CEPHALEXIN 500 MG CAP PO ×4 (09:00→20:14)
[2017-08-09] MEDS: CALCIUM/VITAMIN D 500 MG TAB PO ×2 (09:00→20:14)
[2017-08-09] MEDS: LISINOPRIL 5 MG TAB PO (09:00)
[2017-08-09] MEDS: CLOBETASOL PROPIONATE EMOLLIENT 0.05% CR 60 GM TOP (09:00)
[2017-08-09] MEDS: PERCOCET 5MG/325MG TAB PO ×2 (09:58→20:15)
[2017-08-09] MEDS: ATORVASTATIN 10 MG TAB PO (20:14)
[2017-08-09] MEDS: BIMATOPROST EYE OU (20:15)
[2017-08-09] MEDS: OLOPATADINE EYE OU (20:15)
[2017-08-10] MEDS: LEVOTHYROXINE 100MCG TABLET (0.1MG) PO (05:58)
[2017-08-10 06:58] LABS: BASO # 0.1 10^3/uL (0.0-0.2); BASO % 1.3 % (0.0-1.0); EOS # 0.4 10^3/uL (0.0-0.50); EOS % 5.8 % (0.0-3.0); HEMATOCRIT 39.8 % (36.0-47.0); HEMOGLOBIN 13.3 g/dl (12.0-15.5); IMMATURE GRANULOCYTE % 0.5 % (0-3.0); LYMPH # 1.7 10^3/uL (1.5-4.5); LYMPH % 27.2 % (24.0-44.0); MEAN CORPUSCULAR HEMOGLOBIN 30.6 pg (27.0-33.0); MEAN CORPUSCULAR HGB CONC 33.4 g/dl (32.0-36.5); MEAN CORPUSCULAR VOLUME 91.7 fl (80.0-96.0); MONO # 0.7 10^3/uL (0.0-0.8); MONO % 11.7 % (0.0-5.0); NEUTROPHILS # 3.3 10^3/uL (1.8-7.7); NEUTROPHILS % 53.5 % (36.0-66.0); PLATELET COUNT, AUTOMATED 295 10^3/uL (150-450); RED BLOOD COUNT 4.34 10^6/uL (4.00-5.40); RED CELL DISTRIBUTION WIDTH 12.2 % (11.5-14.5); WHITE BLOOD COUNT 6.2 10^3/uL (4.0-10.0)
[2017-08-10 07:13] LABS: ANION GAP 8 MEQ/L (8-16); BLOOD UREA NITROGEN 15 MG/DL (7-18); CALCIUM LEVEL 9.9 MG/DL (8.8-10.2); CARBON DIOXIDE LEVEL 27 MEQ/L (21-32); CHLORIDE LEVEL 104 MEQ/L (98-107); GLOMERULAR FILTRATION RATE > 60.0 (>39); GLUCOSE, FASTING 86 MG/DL (70-100); MAGNESIUM LEVEL 1.9 MG/DL (1.8-2.4); POTASSIUM SERUM 4.1 MEQ/L (3.5-5.1); SODIUM LEVEL 139 MEQ/L (136-145)
[2017-08-10] MEDS: SYMBICORT 160/4.5MCG INHALER 6GM INH ×2 (07:14→20:57)
[2017-08-10] MEDS: CEPHALEXIN 500 MG CAP PO ×4 (10:32→20:06)
[2017-08-10] MEDS: CALCIUM/VITAMIN D 500 MG TAB PO ×2 (10:32→20:06)
[2017-08-10] MEDS: CLOBETASOL PROPIONATE EMOLLIENT 0.05% CR 60 GM TOP (10:32)
[2017-08-10] MEDS: PERCOCET 5MG/325MG TAB PO ×2 (16:28→23:51)
[2017-08-10] MEDS: BIMATOPROST EYE OU (20:06)
[2017-08-10] MEDS: ATORVASTATIN 10 MG TAB PO (20:06)
[2017-08-10] MEDS: OLOPATADINE EYE OU (20:07)
[2017-08-11] MEDS: LEVOTHYROXINE 100MCG TABLET (0.1MG) PO (05:53)
[2017-08-11] MEDS: SYMBICORT 160/4.5MCG INHALER 6GM INH ×2 (08:39→21:20)
[2017-08-11] MEDS: CALCIUM/VITAMIN D 500 MG TAB PO ×2 (09:14→21:46)
[2017-08-11] MEDS: CEPHALEXIN 500 MG CAP PO ×4 (09:14→21:46)
[2017-08-11] MEDS: CLOBETASOL PROPIONATE EMOLLIENT 0.05% CR 60 GM TOP (09:15)
[2017-08-11] MEDS: ATORVASTATIN 10 MG TAB PO (21:46)
[2017-08-11] MEDS: PERCOCET 5MG/325MG TAB PO (21:46)
[2017-08-11] MEDS: OLOPATADINE EYE OU (21:47)
[2017-08-11] MEDS: BIMATOPROST EYE OU (21:47)
[2017-08-12] MEDS: LEVOTHYROXINE 100MCG TABLET (0.1MG) PO (05:58)
[2017-08-12] MEDS: SYMBICORT 160/4.5MCG INHALER 6GM INH ×2 (08:22→20:57)
[2017-08-12] MEDS: CLOBETASOL PROPIONATE EMOLLIENT 0.05% CR 60 GM TOP (09:00)
[2017-08-12] MEDS: CEPHALEXIN 500 MG CAP PO ×4 (09:28→20:41)
[2017-08-12] MEDS: CALCIUM/VITAMIN D 500 MG TAB PO ×2 (09:28→20:42)
[2017-08-12] MEDS: ATORVASTATIN 10 MG TAB PO (20:41)
[2017-08-12] MEDS: BIMATOPROST EYE OU (20:42)
[2017-08-12] MEDS: OLOPATADINE EYE OU (20:44)
[2017-08-13] MEDS: PERCOCET 5MG/325MG TAB PO ×2 (01:10→08:10)
[2017-08-13] MEDS: LEVOTHYROXINE 100MCG TABLET (0.1MG) PO (05:31)
[2017-08-13 07:58] LABS: HEMATOCRIT 38.9 % (36.0-47.0); HEMOGLOBIN 12.8 g/dl (12.0-15.5); MEAN CORPUSCULAR HEMOGLOBIN 30.4 pg (27.0-33.0); MEAN CORPUSCULAR HGB CONC 32.9 g/dl (32.0-36.5); MEAN CORPUSCULAR VOLUME 92.4 fl (80.0-96.0); PLATELET COUNT, AUTOMATED 303 10^3/uL (150-450); RED BLOOD COUNT 4.21 10^6/uL (4.00-5.40); RED CELL DISTRIBUTION WIDTH 12.2 % (11.5-14.5); WHITE BLOOD COUNT 5.8 10^3/uL (4.0-10.0)
[2017-08-13] MEDS: CEPHALEXIN 500 MG CAP PO ×2 (08:09→13:27)
[2017-08-13] MEDS: CALCIUM/VITAMIN D 500 MG TAB PO (08:09)
[2017-08-13] MEDS: ENOXAPARIN 40 MG/0.4 ML SYRINGE (J1650) SC (08:10)
[2017-08-13] MEDS: CLOBETASOL PROPIONATE EMOLLIENT 0.05% CR 60 GM TOP (08:10)
[2017-08-13 08:12] LABS: ANION GAP 6 MEQ/L (8-16); BLOOD UREA NITROGEN 13 MG/DL (7-18); CALCIUM LEVEL 9.1 MG/DL (8.8-10.2); CARBON DIOXIDE LEVEL 30 MEQ/L (21-32); CHLORIDE LEVEL 104 MEQ/L (98-107); GLOMERULAR FILTRATION RATE > 60.0 (>39); GLUCOSE, FASTING 84 MG/DL (70-100); MAGNESIUM LEVEL 1.9 MG/DL (1.8-2.4); POTASSIUM SERUM 3.8 MEQ/L (3.5-5.1); SODIUM LEVEL 140 MEQ/L (136-145)
[2017-08-13] MEDS: SYMBICORT 160/4.5MCG INHALER 6GM INH (08:49)
== END 2017-08-13 13:40 | DRG 563 ==
LOC: M MS5PR 08-08 17:46 → M ED 15:26 → M ED INP 19:51 → M MS5PR 23:05
PROC: 0SSFXZZ Reposition Right Ankle Joint, External Approach (ICD-10-PCS; principal; 2017-07-29)
DX: S82.841A Displaced bimalleolar fracture of right lower leg, initial encounter for closed fracture (principal); L03.115 Cellulitis of right lower limb; E78.5 Hyperlipidemia, unspecified; K82.8 Other specified diseases of gallbladder; H40.9 Unspecified glaucoma; J45.909 Unspecified asthma, uncomplicated; E03.9 Hypothyroidism, unspecified; I10 Essential (primary) hypertension; Z79.899 Other long term (current) drug therapy; W01.0XXA Fall on same level from slipping, tripping and stumbling without subsequent striking against object, initial encounter; Y92.009 Unspecified place in unspecified non-institutional (private) residence as the place of occurrence of the external cause; Y93.01 Activity, walking, marching and hiking

== ENCOUNTER 2017-08-20 13:27 | Day surgery (SDC) | payer MEDICARE ==
[~2017-08-20 13:27] MED LIST changes: -ALBU17IN INH; -ALEV220C2 PO; -ATOR1TAB19 PO; -BIMA01SOL OU; -CENTTAB47 PO; -HYDR-3713 PO; -LEVO112T2 PO; +LIDOCAINE 2% INJ 100 MG/5 ML SDV (FOR ANES.) As Ordered; +MIDAZOLAM INJ 2 MG/2 ML VIAL (J2250) As Ordered; -PRIL20CA9 PO; +PROPOFOL 200 MG/20 ML VIAL As Ordered; +ROCURONIUM BROMIDE 50 MG/5 ML VIAL As Ordered; -SYMB16INH INH; +fentaNYL 100 MCG/2 ML INJECTION (J3010) As Ordered
[2017-08-20] MEDS ORDERED: LIDOCAINE 1% MDV 20ML VIAL SQ ×4 (15:15)
[2017-08-20] MEDS: LR 1,000 ML IV ×12 (15:15→21:49)
[2017-08-20] MEDS: ceFAZolin 1GM INJ (J0690 PER 500MG) As Ordered ×4 (16:00)
[2017-08-20] MEDS ORDERED: BUPIVACAINE/DEXTROSE 0.75% 2 ML AMP As Ordered ×4 (16:19)
[2017-08-20] MEDS ORDERED: LIDOCAINE PRES-FREE 2% 10ML AMP As Ordered ×4 (16:44)
[2017-08-20] MEDS ORDERED: PHENYLephrine HCL 500 MCG/5 ML (100MCG/ML) SYRINGE (J2370) As Ordered ×4 (17:08)
[2017-08-20] MEDS ORDERED: PROPOFOL 200 MG/20 ML VIAL As Ordered ×8 (18:27→19:01)
[2017-08-20] MEDS: BUPIVACAINE HCL 0.5% 30 ML VIAL As Ordered ×4 (19:40)
[2017-08-20] MEDS ORDERED: ONDANSETRON 4MG/2ML VIAL (J2405) IV ×8 (20:00→20:45)
[2017-08-20] MEDS: fentaNYL 100 MCG/2 ML INJECTION (J3010) IV ×16 (20:10→20:32)
[2017-08-20] MEDS: PERCOCET 5MG/325MG TAB PO ×8 (20:35→21:10)
[2017-08-20] MEDS ORDERED: NORCO, ANEXSIA 5/325MG TABLET (HYDROcodone/ACETAMINOPHEN) PO ×4 (20:45)
[2017-08-20] MEDS ORDERED: PERCOCET 5MG/325MG TAB As Ordered ×4 (21:03)
[2017-08-20] MEDS: MORPHINE 4 MG/ML 1ML VIAL/SYRINGE (J2270) IV ×4 (21:48)
[2017-08-21] MEDS: NORCO, ANEXSIA 5/325MG TABLET (HYDROcodone/ACETAMINOPHEN) PO ×8 (02:05→11:58)
[2017-08-21] MEDS: MORPHINE 4 MG/ML 1ML VIAL/SYRINGE (J2270) IV ×4 (04:10)
[2017-08-21] MEDS: LR 1,000 ML IV ×4 (06:26)
[2017-08-21] MEDS: ASPIRIN 325 MG TAB PO ×4 (09:19)
== END 2017-08-21 11:25 ==
LOC: M SDC 13:27 → M MS5PR 21:25
DX: S82.51XA Displaced fracture of medial malleolus of right tibia, initial encounter for closed fracture (principal); S82.831A Other fracture of upper and lower end of right fibula, initial encounter for closed fracture; W19.XXXA Unspecified fall, initial encounter; Y92.89 Other specified places as the place of occurrence of the external cause; Y93.89 Activity, other specified; Y99.8 Other external cause status; I10 Essential (primary) hypertension; E78.00 Pure hypercholesterolemia, unspecified; E03.9 Hypothyroidism, unspecified; K44.9 Diaphragmatic hernia without obstruction or gangrene; M81.0 Age-related osteoporosis without current pathological fracture; J45.909 Unspecified asthma, uncomplicated; J44.9 Chronic obstructive pulmonary disease, unspecified; Z79.899 Other long term (current) drug therapy; Z78.0 Asymptomatic menopausal state; Z96.1 Presence of intraocular lens
CPT/HCPCS: 27814

== ENCOUNTER → 2017-09-01 | Outpatient (REF) ==
[2017-09-01 08:48] LABS: HEMATOCRIT 40.7 % (36.0-47.0); MEAN CORPUSCULAR HEMOGLOBIN 30.2 pg (27.0-33.0); MEAN CORPUSCULAR HGB CONC 31.9 g/dl (32.0-36.5); MEAN CORPUSCULAR VOLUME 94.7 fl (80.0-96.0); PLATELET COUNT, AUTOMATED 268 10^3/uL (150-450); RED CELL DISTRIBUTION WIDTH 12.7 % (11.5-14.5); WHITE BLOOD COUNT 5.6 10^3/uL (4.0-10.0)
[2017-09-01 10:15] LABS: ALBUMIN 3.2 GM/DL (3.2-5.2); ALBUMIN/GLOBULIN RATIO 0.97 (1.00-1.93); ALKALINE PHOSPHATASE 63 U/L (45-117); ALT/SGPT 14 U/L (12-78); ANION GAP 8 MEQ/L (8-16); AST/SGOT 13 U/L (7-37); BILIRUBIN,TOTAL 0.7 MG/DL (0.2-1.0); BLOOD UREA NITROGEN 11 MG/DL (7-18); CALCIUM LEVEL 9.3 MG/DL (8.8-10.2); CARBON DIOXIDE LEVEL 29 MEQ/L (21-32); CHLORIDE LEVEL 105 MEQ/L (98-107); CHOLESTEROL LEVEL 150 MG/DL (<200); CHOLESTEROL RISK RATIO 2.205 (<5); CREATININE FOR GFR 0.84 MG/DL (0.55-1.30); GLOMERULAR FILTRATION RATE > 60.0 (>39); GLUCOSE, FASTING 74 MG/DL (70-100); HDL CHOLESTEROL 68 MG/DL (>40); LDL CHOLESTEROL 61.2 MG/DL (<100); NON-HDL-C 82 MG/DL; POTASSIUM SERUM 4.4 MEQ/L (3.5-5.1); SODIUM LEVEL 142 MEQ/L (136-145); THYROID STIMULATING HORMONE 0.507 uIU/ML (0.358-3.740); TOTAL PROTEIN 6.5 GM/DL (6.4-8.2); TRIGLYCERIDES LEVEL 104 MG/DL (<150)
== END ==
LOC: SKLAB2 07:00
DX: E03.9 Hypothyroidism, unspecified (principal); E78.5 Hyperlipidemia, unspecified; I10 Essential (primary) hypertension

== ENCOUNTER → 2017-09-13 | Outpatient (CLI) | payer MEDICARE ==
[2017-09-13 21:43] LABS: HEMATOCRIT 37.8 % (36.0-47.0); HEMOGLOBIN 12.7 g/dl (12.0-15.5); MEAN CORPUSCULAR HEMOGLOBIN 31.1 pg (27.0-33.0); MEAN CORPUSCULAR HGB CONC 33.6 g/dl (32.0-36.5); MEAN CORPUSCULAR VOLUME 92.4 fl (80.0-96.0); PLATELET COUNT, AUTOMATED 241 10^3/uL (150-450); RED BLOOD COUNT 4.09 10^6/uL (4.00-5.40); RED CELL DISTRIBUTION WIDTH 12.8 % (11.5-14.5); WHITE BLOOD COUNT 9.5 10^3/uL (4.0-10.0)
== END ==
LOC: M LAB 20:30 → SKLAB2 21:13
DX: R09.3 Abnormal sputum (principal); R91.8 Other nonspecific abnormal finding of lung field
CPT/HCPCS: 71045

== ENCOUNTER → 2017-12-01 | Outpatient (REF) | payer MEDICARE ==
[2017-12-01 10:01] LABS: HEMATOCRIT 40.7 % (36.0-47.0); HEMOGLOBIN 13.3 g/dl (12.0-15.5); MEAN CORPUSCULAR HEMOGLOBIN 30.4 pg (27.0-33.0); MEAN CORPUSCULAR HGB CONC 32.7 g/dl (32.0-36.5); MEAN CORPUSCULAR VOLUME 92.9 fl (80.0-96.0); PLATELET COUNT, AUTOMATED 312 10^3/uL (150-450); RED BLOOD COUNT 4.38 10^6/uL (4.00-5.40); RED CELL DISTRIBUTION WIDTH 12.7 % (11.5-14.5); WHITE BLOOD COUNT 6.6 10^3/uL (4.0-10.0)
== END ==
LOC: SKLAB2 08:00
DX: I10 Essential (primary) hypertension (principal)
CPT/HCPCS: 85027

== ENCOUNTER → 2017-12-05 | Outpatient (REF) | payer MEDICARE ==
[2017-12-05 14:58] LABS: BASO # 0.1 10^3/uL (0.0-0.2); BASO % 1.4 % (0.0-1.0); EOS # 0.4 10^3/uL (0.0-0.50); EOS % 5.4 % (0.0-3.0); HEMATOCRIT 40.6 % (36.0-47.0); HEMOGLOBIN 13.4 g/dl (12.0-15.5); IMMATURE GRANULOCYTE % 0.2 % (0-3.0); LYMPH # 1.7 10^3/uL (1.5-4.5); LYMPH % 25.1 % (24.0-44.0); MEAN CORPUSCULAR HEMOGLOBIN 30.9 pg (27.0-33.0); MEAN CORPUSCULAR VOLUME 93.5 fl (80.0-96.0); MONO # 0.6 10^3/uL (0.0-0.8); MONO % 9.6 % (0.0-5.0); NEUTROPHILS # 3.9 10^3/uL (1.8-7.7); NEUTROPHILS % 58.3 % (36.0-66.0); PLATELET COUNT, AUTOMATED 353 10^3/uL (150-450); RED BLOOD COUNT 4.34 10^6/uL (4.00-5.40); RED CELL DISTRIBUTION WIDTH 12.9 % (11.5-14.5); WHITE BLOOD COUNT 6.7 10^3/uL (4.0-10.0)
[2017-12-05 15:07] LABS: C REACTIVE PROTEIN QUANTITATIV < 0.30 MG/DL (0.00-0.30)
[2017-12-05 15:44] LABS: ERYTHROCYTE SEDIMENTATION RATE 40 mm/hr (0-30)
== END ==
LOC: M LABDRAW1 11:32
DX: S82.841D Displaced bimalleolar fracture of right lower leg, subsequent encounter for closed fracture with routine healing (principal); X58.XXXD Exposure to other specified factors, subsequent encounter; Y92.9 Unspecified place or not applicable; Y93.9 Activity, unspecified; Y99.9 Unspecified external cause status
CPT/HCPCS: 86140

== ENCOUNTER → 2017-12-25 | Outpatient (REF) | payer MEDICARE ==
[2017-12-25 12:27] LABS: BASO # 0.1 10^3/uL (0.0-0.2); BASO % 1.2 % (0.0-1.0); EOS # 0.5 10^3/uL (0.0-0.50); EOS % 7.8 % (0.0-3.0); HEMATOCRIT 40.4 % (36.0-47.0); HEMOGLOBIN 12.8 g/dl (12.0-15.5); IMMATURE GRANULOCYTE % 0.8 % (0-3.0); LYMPH # 1.3 10^3/uL (1.5-4.5); LYMPH % 19.4 % (24.0-44.0); MEAN CORPUSCULAR HEMOGLOBIN 30.2 pg (27.0-33.0); MEAN CORPUSCULAR HGB CONC 31.7 g/dl (32.0-36.5); MEAN CORPUSCULAR VOLUME 95.3 fl (80.0-96.0); MONO # 0.8 10^3/uL (0.0-0.8); MONO % 12.5 % (0.0-5.0); NEUTROPHILS # 3.9 10^3/uL (1.8-7.7); NEUTROPHILS % 58.3 % (36.0-66.0); PLATELET COUNT, AUTOMATED 358 10^3/uL (150-450); RED BLOOD COUNT 4.24 10^6/uL (4.00-5.40); WHITE BLOOD COUNT 6.7 10^3/uL (4.0-10.0)
[2017-12-25 12:45] LABS: ERYTHROCYTE SEDIMENTATION RATE 59 mm/hr (0-30)
[2017-12-25 13:09] LABS: C REACTIVE PROTEIN QUANTITATIV 3.32 MG/DL (0.00-0.30)
== END ==
LOC: M LABDRAW1 11:50
DX: S82.841D Displaced bimalleolar fracture of right lower leg, subsequent encounter for closed fracture with routine healing (principal); X58.XXXD Exposure to other specified factors, subsequent encounter; Y92.9 Unspecified place or not applicable
CPT/HCPCS: 86140

== ENCOUNTER 2018-01-09 14:49 | Day surgery (SDC) | payer MEDICARE ==
[2018-01-09 15:33] LABS: C REACTIVE PROTEIN QUANTITATIV < 0.30 MG/DL (0.00-0.30)
[2018-01-09] MEDS ORDERED: LIDOCAINE 2% INJ 100 MG/5 ML SDV (FOR ANES.) As Ordered (16:02)
[2018-01-09] MEDS ORDERED: PROPOFOL 200 MG/20 ML VIAL As Ordered (16:02)
[2018-01-09] MEDS ORDERED: MIDAZOLAM INJ 2 MG/2 ML VIAL (J2250) As Ordered (16:02)
[2018-01-09] MEDS ORDERED: fentaNYL 100 MCG/2 ML INJECTION (J3010) As Ordered ×2 (16:02→17:55)
[2018-01-09 16:10] LABS: ERYTHROCYTE SEDIMENTATION RATE 33 mm/hr (0-30)
[2018-01-09] MEDS ORDERED: dexameTHASONE 4 MG/ML 1ML VIAL (J1100) As Ordered (16:46)
[2018-01-09] MEDS ORDERED: PHENYLephrine HCL 500 MCG/5 ML (100MCG/ML) SYRINGE (J2370) As Ordered (16:49)
[2018-01-09] MEDS ORDERED: ONDANSETRON 4MG/2ML VIAL (J2405) As Ordered (17:00)
[2018-01-09] MEDS: BUPIVACAINE HCL 0.25% 30 ML VIAL As Ordered (18:10)
[2018-01-09] MEDS ORDERED: METOCLOPRAMIDE INJ 10MG/2ML VIAL (J2765) IV (19:15)
[2018-01-09] MEDS ORDERED: fentaNYL 100 MCG/2 ML INJECTION (J3010) IV (19:15)
[2018-01-09] MEDS ORDERED: PERCOCET 5MG/325MG TAB PO (19:15)
[2018-01-09] MEDS ORDERED: ONDANSETRON 4MG/2ML VIAL (J2405) IV ×2 (19:15)
[2018-01-09] MEDS: LR 1,000 ML IV ×2 (19:15→21:44)
[2018-01-09] MEDS: NORCO, ANEXSIA 5/325MG TABLET (HYDROcodone/ACETAMINOPHEN) PO (19:51)
[2018-01-10] MEDS: NORCO, ANEXSIA 5/325MG TABLET (HYDROcodone/ACETAMINOPHEN) PO ×3 (02:09→09:54)
[2018-01-12] MEDS ORDERED: LR 1,000 ML IV (06:00)
== END 2018-01-10 11:25 | disposition home or self-care (01) ==
LOC: M SDC 14:49 → M MS4PR 20:45
DX: T84.84XA Pain due to internal orthopedic prosthetic devices, implants and grafts, initial encounter (principal); T85.79XA Infection and inflammatory reaction due to other internal prosthetic devices, implants and grafts, initial encounter; I10 Essential (primary) hypertension; E03.9 Hypothyroidism, unspecified; H40.9 Unspecified glaucoma; E78.5 Hyperlipidemia, unspecified; K57.32 Diverticulitis of large intestine without perforation or abscess without bleeding; K44.9 Diaphragmatic hernia without obstruction or gangrene; J45.909 Unspecified asthma, uncomplicated; Z79.899 Other long term (current) drug therapy; Z79.82 Long term (current) use of aspirin; Z87.81 Personal history of (healed) traumatic fracture; Z98.41 Cataract extraction status, right eye; Z98.42 Cataract extraction status, left eye; Z96.1 Presence of intraocular lens; X58.XXXA Exposure to other specified factors, initial encounter; Y93.89 Activity, other specified; Y92.89 Other specified places as the place of occurrence of the external cause; Y99.8 Other external cause status
CPT/HCPCS: 20680

== ENCOUNTER → 2018-01-14 | Outpatient (REF) | payer MEDICARE ==
[2018-01-14 14:05] LABS: ANION GAP 7 MEQ/L (8-16); BLOOD UREA NITROGEN 21 MG/DL (7-18); CALCIUM LEVEL 8.6 MG/DL (8.8-10.2); CARBON DIOXIDE LEVEL 29 MEQ/L (21-32); CHLORIDE LEVEL 103 MEQ/L (98-107); CREATININE FOR GFR 0.85 MG/DL (0.55-1.30); GLOMERULAR FILTRATION RATE > 60.0 (>39); GLUCOSE, FASTING 124 MG/DL (70-100); POTASSIUM SERUM 3.7 MEQ/L (3.5-5.1); SODIUM LEVEL 139 MEQ/L (136-145)
== END ==
LOC: M LAB REF 12:14
DX: E27.9 Disorder of adrenal gland, unspecified (principal)
CPT/HCPCS: 80048

== ENCOUNTER → 2018-01-15 | Outpatient (REF) | payer MEDICARE ==
[2018-01-24 00:57] LABS: DOPAMINE 200 ug/24 hr (0-510); DOPAMINE TOTAL URINE 250 ug/L (Undefined); EPINEPHRINE 2 ug/24 hr (0-20); EPINEPHRINE TOTAL URINE 3 ug/L (Undefined); METANEPHRINE TOTAL URINE 84 ug/L (Undefined); METANEPHRINE URINE 67 ug/24 hr (45-290); NOREPINEPHRINE 30 ug/24 hr (0-135); NOREPINEPHRINE TOTAL URINE 37 ug/L (Undefined); NORMETANEPHRINE TOTAL URINE 465 ug/L (Undefined); NORMETANEPHRINE URINE 372 ug/24 hr (82-500)
== END ==
LOC: M LAB REF 01-21 10:17
DX: E27.9 Disorder of adrenal gland, unspecified (principal)
CPT/HCPCS: 82384

== ENCOUNTER → 2018-01-26 | Outpatient (REF) | payer MEDICARE ==
[2018-01-26 16:20] LABS: ALBUMIN 3.8 GM/DL (3.2-5.2); ALBUMIN/GLOBULIN RATIO 1.03 (1.00-1.93); ALKALINE PHOSPHATASE 78 U/L (45-117); ALT/SGPT 21 U/L (12-78); ANION GAP 6 MEQ/L (8-16); AST/SGOT 17 U/L (7-37); BILIRUBIN,DIRECT 0.1 MG/DL (0.0-0.2); BILIRUBIN,TOTAL 0.4 MG/DL (0.2-1.0); BLOOD UREA NITROGEN 23 MG/DL (7-18); C REACTIVE PROTEIN QUANTITATIV 0.45 MG/DL (0.00-0.30); CARBON DIOXIDE LEVEL 30 MEQ/L (21-32); CHLORIDE LEVEL 102 MEQ/L (98-107); CREATININE FOR GFR 0.78 MG/DL (0.55-1.30); GLOMERULAR FILTRATION RATE > 60.0 (>39); GLUCOSE, FASTING 110 MG/DL (70-100); POTASSIUM SERUM 3.4 MEQ/L (3.5-5.1); SODIUM LEVEL 138 MEQ/L (136-145); TOTAL PROTEIN 7.5 GM/DL (6.4-8.2)
== END ==
LOC: M LABDRAW1 14:12
DX: Z47.89 Encounter for other orthopedic aftercare (principal)
CPT/HCPCS: 82248

== ENCOUNTER → 2018-02-03 | Outpatient (REF) | payer MEDICARE ==
[2018-02-03 18:56] LABS: APPEARANCE, URINE TURBID (CLEAR); BACTERIA, URINE AUTO 2+ (NEGATIVE); BILIRUBIN, URINE AUTO NEGATIVE (NEGATIVE); BLOOD, URINE BLOOD 3+ (NEGATIVE); COLOR, URINE AMBER (YELLOW); GLUCOSE, URINE (UA) AUTO NEGATIVE (NEGATIVE); KETONE, URINE AUTO TRACE mg/dL (NEGATIVE); LEUKOCYTE ESTERASE, URINE AUTO 2+ (NEGATIVE); MUCUS, URINE LARGE (NEGATIVE); NITRITE, URINE AUTO NEGATIVE (NEGATIVE); PROTEIN, URINE AUTO 2+ mg/dL (NEGATIVE); RBC, URINE AUTO TNTC /HPF (0-3); SPECIFIC GRAVITY URINE AUTO 1.026 (1.002-1.035); SQUAMOUS EPITHELIAL CELL UR AU 41 /HPF (0-6); WBC, URINE AUTO TNTC /HPF (0-3)
== END ==
LOC: M LAB REF 16:42
DX: N39.0 Urinary tract infection, site not specified (principal)
CPT/HCPCS: 81001

== ENCOUNTER → 2018-02-09 | Outpatient (REF) | payer MEDICARE ==
[~2018-02-09] MED LIST changes: +ALBU17IN INH; +ALEV220C2 PO; +AMLO5TAB4 PO; +ASPI81TA85 PO; +ATOR1TAB19 PO; +ATOR1TAB21 PO; +AZIT500T2 PO; +BENZ-18 PO; +BIMA01SOL OU; +CALC-190 PO; +CALCD50TA PO; +CENTTAB47 PO; +CEPA5.4L2 MT; +CEPH500C PO; +CLOB0.0548 TOP; +CLOBETASOL; +COLA100C5 PO; +ESTR1MIS PV; +HYDR-3713 PO; +LEVO100T5 PO; +LEVO112T2; +LEVO112T2 PO; -LIDOCAINE 2% INJ 100 MG/5 ML SDV (FOR ANES.) As Ordered; +LISI-542 PO; -MIDAZOLAM INJ 2 MG/2 ML VIAL (J2250) As Ordered; +NORCOTAB PO; +OLOP0.2S OU; +PERCOCET PO; +PRED10TA2 PO; +PRED20TA PO; +PRIL20CA9 PO; +PROAAER10 INH; -PROPOFOL 200 MG/20 ML VIAL As Ordered; -ROCURONIUM BROMIDE 50 MG/5 ML VIAL As Ordered; +ROLLMIS2 XX; +SIME180C PO; +SYMB16INH INH; -fentaNYL 100 MCG/2 ML INJECTION (J3010) As Ordered
[2018-02-09 12:38] LABS: BASO % 0.7 % (0.0-1.0); EOS # 0.1 10^3/uL (0.0-0.50); EOS % 1.9 % (0.0-3.0); HEMATOCRIT 40.2 % (36.0-47.0); HEMOGLOBIN 12.8 g/dl (12.0-15.5); LYMPH # 1.3 10^3/uL (1.5-4.5); LYMPH % 24.2 % (24.0-44.0); MEAN CORPUSCULAR HEMOGLOBIN 29.8 pg (27.0-33.0); MEAN CORPUSCULAR HGB CONC 31.8 g/dl (32.0-36.5); MEAN CORPUSCULAR VOLUME 93.5 fl (80.0-96.0); MONO # 0.4 10^3/uL (0.0-0.8); MONO % 6.5 % (0.0-5.0); NEUTROPHILS # 3.6 10^3/uL (1.8-7.7); NEUTROPHILS % 66.5 % (36.0-66.0); PLATELET COUNT, AUTOMATED 188 10^3/uL (150-450); WHITE BLOOD COUNT 5.4 10^3/uL (4.0-10.0)
[2018-02-09 13:23] LABS: ERYTHROCYTE SEDIMENTATION RATE 8 mm/hr (0-30)
== END ==
LOC: M SFHCPLAZ 10:03
PROVIDERS: ATTEND Internal Medicine Infectious Disease
DX: T81.49XA Infection following a procedure, other surgical site, initial encounter (principal); Y83.8 Other surgical procedures as the cause of abnormal reaction of the patient, or of later complication, without mention of misadventure at the time of the procedure

== ENCOUNTER → 2018-08-13 | Outpatient (REF) | payer MEDICARE ==
[~2018-08-13] MED LIST changes: -AMLO5TAB4 PO; +AMLO5TAB6 PO; +HYDR-3715 PO; -NORCOTAB PO
== END ==
LOC: M LABDRAW1 11:52
PROVIDERS: ATTEND Nurse Practitioner Family
DX: E27.9 Disorder of adrenal gland, unspecified (principal)

== ENCOUNTER → 2018-09-04 | Outpatient (CLI) | payer MEDICARE ==
[~2018-09-04] MED LIST changes: +ASPI-161 PO; +D-10TAB2 PO; +LEVO50TA5; +OMEP-221; +OMEP-221 PO; +SYNT50TA PO; +VITA-144
[2018-09-04 15:59] LABS: BLOOD UREA NITROGEN 19 MG/DL (7-18); CARBON DIOXIDE LEVEL 27 MEQ/L (21-32); CHLORIDE LEVEL 105 MEQ/L (98-107); CREATININE FOR GFR 0.92 MG/DL (0.55-1.30); GLOMERULAR FILTRATION RATE > 60.0 (>32); GLUCOSE, FASTING 93 MG/DL (70-100); POTASSIUM SERUM 4.4 MEQ/L (3.5-5.1); SODIUM LEVEL 139 MEQ/L (136-145)
[2018-09-17 00:06] LABS: DOPAMINE PLASMA <30 pg/mL (0-48); EPINEPHRINE PLASMA <15 pg/mL (0-62); NOREPINEPHRINE PLASMA 864 pg/mL (0-874)
== END ==
LOC: M SMT 14:45
PROVIDERS: ATTEND Urology
DX: E27.8 Other specified disorders of adrenal gland (principal)
CPT/HCPCS: 36415; 80048; 82383; 82533; 83835; G0463

== ENCOUNTER 2018-09-07 21:35 | Inpatient (IN) | payer MEDICARE ==
[~2018-09-07] VITALS: Ht 167.6 cm; Wt 65.0 kg
[~2018-09-07 21:35] MED LIST changes: -ASPI-161 PO; -D-10TAB2 PO; -ISOVUE-370 76% 100ML VIAL (Q9967) As Ordered ONE; -LEVO50TA5; -OMEP-221; -OMEP-221 PO; -SYNT50TA PO; -VITA-144
[2018-09-07] MEDS ORDERED: VITA-144 (21:47)
[2018-09-07] MEDS ORDERED: LEVO50TA5 (21:47)
[2018-09-07] MEDS ORDERED: OMEP-221 (21:47)
[2018-09-08 00:10] LABS: BASO # 0.1 10^3/uL (0.0-0.2); BASO % 0.6 % (0.0-1.0); EOS % 0.3 % (0.0-3.0); HEMATOCRIT 43.2 % (36.0-47.0); HEMOGLOBIN 14.2 g/dl (12.0-15.5); LYMPH # 1.1 10^3/uL (1.5-4.5); LYMPH % 11.4 % (24.0-44.0); MEAN CORPUSCULAR HEMOGLOBIN 30.9 pg (27.0-33.0); MEAN CORPUSCULAR HGB CONC 32.9 g/dl (32.0-36.5); MEAN CORPUSCULAR VOLUME 93.9 fl (80.0-96.0); MONO # 1.6 10^3/uL (0.0-0.8); MONO % 15.8 % (0.0-5.0); NEUTROPHILS # 7.1 10^3/uL (1.8-7.7); NEUTROPHILS % 71.7 % (36.0-66.0); PLATELET COUNT, AUTOMATED 291 10^3/uL (150-450); WHITE BLOOD COUNT 9.9 10^3/uL (4.0-10.0)
[2018-09-08 00:24] LABS: INR 1.15; PROTHROMBIN TIME 14.4 SECONDS (11.8-14.0)
[2018-09-08 00:25] LABS: PARTIAL THROMBOPLASTIN TIME 30.6 SECONDS (25.0-38.4)
[2018-09-08 00:34] LABS: ALBUMIN 3.2 GM/DL (3.2-5.2); ALT/SGPT 16 U/L (12-78); BILIRUBIN,DIRECT 0.4 MG/DL (0.0-0.2); BILIRUBIN,TOTAL 1.1 MG/DL (0.2-1.0); BLOOD UREA NITROGEN 29 MG/DL (7-18); CALCIUM LEVEL 9.5 MG/DL (8.8-10.2); CARBON DIOXIDE LEVEL 25 MEQ/L (21-32); CHLORIDE LEVEL 101 MEQ/L (98-107); CREATININE FOR GFR 0.81 MG/DL (0.55-1.30); GLOMERULAR FILTRATION RATE > 60.0 (>32); GLUCOSE, FASTING 90 MG/DL (70-100); LIPASE 121 U/L (73-393); POTASSIUM SERUM 4.1 MEQ/L (3.5-5.1); SODIUM LEVEL 137 MEQ/L (136-145); TOTAL PROTEIN 7.7 GM/DL (6.4-8.2)
[2018-09-08] MEDS: GASTROGRAFIN SOLUTION 30ML PO SCH ×4 (01:07→14:33)
--- NOTE | 2018-09-08 04:56 | REPVR ---
EXAM: CT Abdomen and Pelvis Without Contrast EXAM DATE/TIME: 09/08/2018 2:29 AM CLINICAL HISTORY: 78 years old, female; Abdominal pain; Localized; Right lower quadrant (rlq); Additional info: Rlq pain TECHNIQUE: Imaging protocol: Axial computed tomography images of the abdomen and pelvis without contrast. Coronal and sagittal reformatted images were created and reviewed. Radiation optimization: All CT scans at this facility use at least one of these dose optimization techniques: automated exposure control; mA and/or kV adjustment per patient size (includes targeted exams where dose is matched to clinical indication); or iterative reconstruction. COMPARISON: CT ABD/PEL W/IV CONTRAST ONLY 07/01/2017 2:28 PM FINDINGS: Lungs: There is compressive atelectasis in both lungs. Heart: There is distortion of the heart with anterior displacement and compression on the left atrium in particular, related to the large hernia. Mediastinum: A large hiatal hernia is again seen. There is herniation of nearly the entire stomach and a portion of the transverse colon. Liver: There is a heterogeneous decreased attenuation mass at the right lobe of the liver which seems to involve the liver parenchyma and extends through the capsule of the liver, measuring 8.4 x 5.5 x 7.0 cm. Only a small nodular lesion was present at the capsule of the liver on the prior exam. There is an trace of fluid adjacent to the inferior tip of the liver. Gallbladder and bile ducts: There is calcification of the wall of the gallbladder, also seen previously. There is no biliary ductal dilation. Pancreas: The pancreas appears unremarkable. Spleen: The spleen is normal. Adrenals: The right adrenal gland is not identified separate from the lesion which also involves the right lobe of the liver. The left adrenal gland appears unremarkable. Kidneys and ureters: There is excreted IV contrast in the renal collecting systems and in the bladder. Stomach and bowel: Herniation of the stomach and a portion of transverse colon into a large hiatal hernia again noted. Mild diverticulosis is present in the distal colon. There is no dilation or thickening of the colon. The small bowel appears unremarkable. Appendix: The appendix is not specifically identified. Intraperitoneal space: There is a trace of free fluid in the pelvis. There is no free intraperitoneal air. Vasculature: There is tortuosity and mild calcification of the abdominal aorta. Lymph nodes: There are mildly enlarged right anterior diaphragmatic lymph nodes, with the largest measuring 8 mm in diameter, increased from 6 mm on the prior exam. Bladder: There is dense excreted contrast in the bladder. The bladder appears unremarkable. Reproductive: A pessary is noted in the pelvis. There is a globular soft tissue mass in the midline and right side of the pelvis. The uterus was present and mildly lobular on the prior exam, but the mass seen currently is larger than the uterus previously. Current measurements are 8.4 cm transverse by 10.0 cm AP by 6.6 cm craniocaudal. Bones/joints: Degenerative endplate changes are seen at multiple levels in the visualized spine. There is a rightward convex curvature in the lumbar spine. Impression: Soft tissues: There is a lobular soft tissue mass in the left subdiaphragmatic region, superior to the spleen, and measuring 5.9 x 3.5 cm which previously measured 1.5 x 1.0 cm. See Reproductive findings. IMPRESSION: 1. Lobular soft tissue masses in the abdomen and pelvis, including a mass which involves the right lobe of the liver and the right adrenal gland, a left subdiaphragmatic mass, and a mass in the pelvis which may originate in or involve the uterus. This is consistent with a malignancy, but the primary malignancy is uncertain. Additional history was provided that the patient had a known adrenal mass. 2. Large hiatal hernia containing nearly the entire stomach and a portion of the transverse colon, with associated displacement and compression of the heart and compressive atelectasis in both lung bases. 3. Porcelain gallbladder again noted. Findings were discussed with RUT ALCARAZ at 09/08/2018 4:53 AM EDT. COMMENT: Consistent with the [employer]'s Incidental Findings Committee Report (J Am Linwood Radiol 2010): Unless the patient's specific circumstances suggest otherwise, any liver lesion 0.5 cm or less, any cystic kidney lesion less than 1.0 cm, and/or any adrenal lesion 1.0 cm or less not otherwise characterized in this report as possessing suspicious or indeterminate imaging features is/are highly likely to be benign and do not require follow-up imaging or biopsy. Electronically signed by: Lacey Burdick On 09/08/2018 04:56:12 AM
[2018-09-08] MEDS ORDERED: ACETAMINOPHEN TAB 650MG DOSE (2X325MG) PO PRN (05:30)
[2018-09-08] MEDS ORDERED: ESTR1MIS PV (05:40)
[2018-09-08] MEDS ORDERED: ATOR1TAB19 PO (05:40)
[2018-09-08] MEDS ORDERED: SYNT50TA PO (05:40)
[2018-09-08] MEDS ORDERED: D-10TAB2 PO (05:40)
[2018-09-08] MEDS ORDERED: OMEP-221 PO (05:40)
[2018-09-08] MEDS ORDERED: ASPI-161 PO (05:40)
[2018-09-08] MEDS ORDERED: ALBUTEROL 90 MCG/ACT 8GM HFA INHALER INH PRN (06:00)
--- NOTE | 2018-09-08 06:04 | HPEPDOC ---
General Date of Admission Sep 08, 2018 at 05:30 Date of Service: Sep 08, 2018 Chief Complaint The patient is a 78-year-old female admitted with a reason for visit of Generalized Swelling, Mass, Or Lump Of Abdomen. History of Present Illness 78-year-old female with past medical history of hypertension, hypothyroidism, dyslipidemia, asthma, GERD, and known right adrenal mass presents to the ER with a chief complaint of right lower quadrant abdominal pain for the past 7 days. The patient states that this has been progressing over the last 7 days, as she endorses a decreased appetite due to the same. She denies any fevers, chills, chest pain, palpitations, weight loss, ingestion of foreign foods, sick contacts, recent travel, or any nausea/vomiting/diarrhea. Of note, the patient states that this was initially worked up in June 2017 when she had a CT scan of the abdomen/pelvis ordered during an ER visit. At that time, the patient was noted to have a 2.8 x 1.3 cm right adrenal mass and a porcelain gallbladder noted. The patient tells me that she was referred to general surgeon Dr. Carter and Weatherization And Housing Inspector Dr. Banegas regarding the aforementioned findings as an outpatient, after being seen by them, she was subsequently referred to Dr. Garcia of Urology. She has yet to be seen by Urology at this time. In the ER, a CT scan of the abdomen/pelvis revealed lobular soft tissue masses in the abdomen and pelvis including a mass which involves the right lobe of the liver and the right adrenal gland, a left subdiaphragmatic mass, and a mass in the pelvis which may originate in or involved the uterus. This is thought to be consistent with a malignancy with an uncertain primary according to the report. The patient will be admitted to the hospitalist service for further evaluation and management. Home Medications Scheduled Amlodipine Besylate (Amlodipine Besylate) 5 Mg Tab, 5 MG PO DAILY, (Reported) Aspirin (Aspirin EC) 81 Mg Tablet.dr, 81 MG PO DAILY, (Reported) Atorvastatin Calcium (Atorvastatin Calcium) 10 Mg Tablet, 10 MG PO QHS, (Reported) Bimatoprost (Lumigan) 50 Drop/2.5 Ml Lyudmila, 1 DROP OU QHS, (Reported) Budesonide/Formoterol (Symbicort 160-4.5 Mcg Inhaler) 60 Puff/Inhaler Aers, 2 PUFF INH BID, (Reported) Calcium Carbonate/Vitamin D3 (Calcium 1,000 + D3 Caplet) 1 Tab Tab, 1 TAB PO DAILY, (Reported) Cholecalciferol (Vitamin D3) (Vitamin D3) 1,000 Unit Tablet, 1,000 UNIT PO DAILY, (Reported) Clobetasol Propionate/Emoll (Clobetasol Emollient 0.05% Crm) 0.05 % Cre, 1 DOSE TOP DAILY, (Reported) APPLIES TO GROIN Estradiol (Estring) 2 Mg Vag.ring, 1 RING PV Q3M, (Reported) Levothyroxine Sodium (Synthroid) 50 Mcg Tablet, 50 MCG PO DAILY, (Reported) Omeprazole (Omeprazole) 40 Mg Capsule.dr, 40 MG PO DAILY, (Reported) Scheduled PRN Albuterol Sulfate (Proair Hfa) 108 Mcg/Act Aer, 2 PUFF INH Q4H PRN for SHORTNESS OF BREATH, (Reported) Olopatadine HCl (Olopatadine HCl) 0.2 % Lyudmila, 1 DROP OU QHS PRN for ITCHING, (Reported) Allergies Coded Allergies: No Known Allergies (Unverified , 09/07/18) Past Medical History Medical History As noted in HPI. Surgical History Right ankle surgery Family History Patient's mother had history of breast and uterine cancer. No other family members known to have malignancy according to the patient. Social History * Smoker: Denies Alcohol: occationally (patient states that she has a glass of wine on occasion) Drugs: denies Lives at home by herself. Functionally independent at baseline. Has a daughter that lives in the [facility]. Review of Systems Other systems 10 point review of systems negative unless otherwise specified in HPI. Physical Examination General Exam: Positive: Alert, Cooperative, No Acute Distress ENT Exam: Positive: Atraumatic, Mucous membr. moist/pink Neck Exam: Negative: JVD Chest Exam: Positive: Clear to auscultation, Normal air movement Heart Exam: Positive: Rate Normal, Normal S1, Normal S2 Abdomen Exam: Positive: Soft, Tenderness (tenderness to deep palpation localized in the right lower quadrant. No rebound tenderness, guarding, or rigidity noted.) Extremity Exam: Negative: Tenderness, Swelling Psych Exam: Positive: Oriented x 3 Vital Signs Vital Signs Date Time Temp Pulse Resp B/P (MAP) Pulse Ox O2 Delivery O2 Flow Rate FiO2 09/08/18 04:00 89 112/82 (92) 95 09/08/18 01:30 18 Room Air 09/07/18 21:36 98.1 Laboratory Data Labs 24H Laboratory Tests 2 09/07/18 23:40: Immature Granulocyte % (Auto) 0.2, White Blood Count 9.9, Red Blood Count 4.60, Hemoglobin 14.2, Hematocrit 43.2, Mean Corpuscular Volume 93.9, Mean Corpuscular Hemoglobin 30.9, Mean Corpuscular Hemoglobin Concent 32.9, Red Cell Distribution Width 13.6, Platelet Count 291, Neutrophils (%) (Auto) 71.7H, Lymphocytes (%) (Auto) 11.4L, Monocytes (%) (Auto) 15.8H, Eosinophils (%) (Auto) 0.3, Basophils (%) (Auto) 0.6, Neutrophils # (Auto) 7.1, Lymphocytes # (Auto) 1.1L, Monocytes # (Auto) 1.6H, Eosinophils # (Auto) 0.0, Basophils # (Auto) 0.1, Nucleated Red Blood Cells % (auto) 0.0, Prothrombin Time 14.4H, Prothromb Time International Ratio 1.15, Activated Partial Thromboplast Time 30.6, Anion Gap 11, Glomerular Filtration Rate > 60.0, Lactic Acid Level 1.2, Calcium Level 9.5, Aspartate Amino Transf (AST/SGOT) 19, Alanine Aminotransferase (ALT/SGPT) 16, Alkaline Phosphatase 93, Total Bilirubin 1.1H, Direct Bilirubin 0.4H, Total Protein 7.7, Albumin 3.2, Albumin/Globulin Ratio 0.71L, Lipase 121 CBC/BMP Laboratory Tests 09/07/18 23:40 Red Blood Count 4.60, Mean Corpuscular Volume 93.9, Mean Corpuscular Hemoglobin 30.9, Mean Corpuscular Hemoglobin Concent 32.9, Red Cell Distribution Width 13.6, Neutrophils (%) (Auto) 71.7 H, Lymphocytes (%) (Auto) 11.4 L, Monocytes (%) (Auto) 15.8 H, Eosinophils (%) (Auto) 0.3, Basophils (%) (Auto) 0.6, Neutrophils # (Auto) 7.1, Lymphocytes # (Auto) 1.1 L, Monocytes # (Auto) 1.6 H, Eosinophils # (Auto) 0.0, Basophils # (Auto) 0.1 Microbiology Microbiology 09/07/18 Blood Culture, Received Pending 09/07/18 Blood Culture, Received Pending Plan / VTE VTE Prophylaxis Ordered?: Yes Plan Plan Masses suspicious for Malignancy noted on CT/Abd Pel CT scan of the abdomen/pelvis revealed lobular soft tissue masses in the abdomen and pelvis including a mass which involves the right lobe of the liver and the right adrenal gland, a left subdiaphragmatic mass, and a mass in the pelvis which may originate in or involved the uterus. This is thought to be consistent with a malignancy with an uncertain primary according to the report. CT Chest with no acute findings for Mets or primary of the lungs Tumor Markers ordered Consider Urology, Oncology consultation in the AM regarding further investigation Hypertension, stable Continue Norvasc Dyslipidemia Continue statin Hypothyroidism Continue levothyroxine Asthma, stable Continue albuterol when necessary, Symbicort GERD Continue PPI DVT prophylaxis Lovenox subcutaneous MARGARITA VITAL MD Sep 08, 2018 06:04
[2018-09-08] MEDS: SYMBICORT 160/4.5MCG INHALER 6GM INH SCH (09:02)
[2018-09-08] MEDS: ENOXAPARIN 40 MG/0.4 ML SYRINGE (J1650) SC SCH (09:11)
[2018-09-08] MEDS: VITAMIN D 1,000 INTERNATIONAL UNITS TABLET PO SCH (09:11)
[2018-09-08] MEDS: LEVOTHYROXINE 50MCG TABLET (0.05MG) PO SCH (09:11)
[2018-09-08] MEDS: OMEPRAZOLE 20 MG CAP PO SCH (09:13)
[2018-09-08] MEDS: amLODIPine 5 MG TAB PO SCH (09:14)
[2018-09-08 10:42] LABS: CA19-9 TUMOR MARKER,CARBOHYDRA 8.2 U/ML (<35.0)
--- NOTE | 2018-09-08 15:12 | IPNPDOC ---
Text Note Date of Service The patient was seen on 09/08/18. NOTE Subjective: Patient is an 78-year-old female with a PMHx of HTN, Hypothyroidism, DLP, Asthma, GERD, Hx of R adrenal mass who presented to the ER with complaints of right lower quadrant abdominal pain for 7 days. Patient had reported decreased appetite. 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 She was advised to follow up with general surgeon Dr. Carter and Patient Safety Sitter Dr. Banegas. . She had followed up with them appropriately and was directed to Dr. Garcia of urology. In the ER, a CT scan of the abdomen/pelvis revealed lobular soft tissue masses in the abdomen and pelvis including a mass which involves the right lobe of the liver and the right adrenal gland, a left subdiaphragmatic mass, and a mass in the pelvis which may originate in or involved the uterus. This is thought to be consistent with a malignancy with an uncertain primary according to the report. The patient will be admitted to the hospitalist service for further evaluation and management. Patient was seen and examined at the bedside. Currently patient still reports abdominal pain. She denies nausea, vomiting, chest pain, shortness of breath or palpitations. She denies any diarrhea. Denies any discomfort with urination. I have advised her that I have contacted urology. Objective: Vitals (See below) General: Lying in bed, no acute distress, comfortable, AAOx3 HEENT: NC, AT CVS: RRR, +S1S2 Lungs: Fair air entry b/l, -w/r/r Abdomen: Soft, ND, mild tenderness on deep palpation at RLQ Extremities: - Edema, - Calf tenderness Assessment and plan: Masses suspicious for Malignancy noted on CT/Abd Pel - Presented to the ER with complaints of abdominal pain - Physical does reveal some abdominal tenderness - CT scan of the abdomen/pelvis revealed lobular soft tissue masses in the abdomen and pelvis including a mass which involves the right lobe of the liver and the right adrenal gland, a left subdiaphragmatic mass, and a mass in the pel vis which may originate in or involved the uterus. This is thought to be consistent with a malignancy with an uncertain primary according to the report. - CT Chest with no acute findings for Mets or primary of the lungs - Tumor Markers pending - Consulted urology; plan for additional CT imaging of abdomen with contrast; echo vasc tech has notified me that CT with contrast will be delayed in light of recently received contrast from chest CT HTN - BP well controlled - Continue with Norvasc Dyslipidemia - Continue with Atorvastatin Hypothyroidism - Continue with levothyroxine Ashtma - No signs of exacerbation - Continue with inhaled therapy as ordered GERD - c/w Omeprazole DVT prophylaxis - c/w Lovenox VS,Fishbone, I+O VS, Fishbone, I+O Laboratory Tests 09/07/18 23:40 Red Blood Count 4.60, Mean Corpuscular Volume 93.9, Mean Corpuscular Hemoglobin 30.9, Mean Corpuscular Hemoglobin Concent 32.9, Red Cell Distribution Width 13.6, Neutrophils (%) (Auto) 71.7 H, Lymphocytes (%) (Auto) 11.4 L, Monocytes (%) (Auto) 15.8 H, Eosinophils (%) (Auto) 0.3, Basophils (%) (Auto) 0.6, Neutrophils # (Auto) 7.1, Lymphocytes # (Auto) 1.1 L, Monocytes # (Auto) 1.6 H, Eosinophils # (Auto) 0.0, Basophils # (Auto) 0.1 Vital Signs Date Time Temp Pulse Resp B/P (MAP) Pulse Ox O2 Delivery O2 Flow Rate FiO2 09/08/18 12:11 98.2 91 19 133/72 (92) 95 Room Air AHSAN WALDROP MD Sep 08, 2018 15:12
[2018-09-08] MEDS ORDERED: ISOVUE-370 76% 100ML VIAL (Q9967) As Ordered ONE (18:04)
--- NOTE | 2018-09-08 19:56 | REPVR ---
EXAM: CT Abdomen and Pelvis With Contrast EXAM DATE/TIME: 09/08/2018 6:27 PM CLINICAL HISTORY: 78 years old, female; Abdominal pain; Additional info: Triple phase to look at liver mass TECHNIQUE: Imaging protocol: Axial computed tomography images of the abdomen and pelvis with intravenous contrast. Coronal and sagittal reformatted images were created and reviewed. Radiation optimization: All CT scans at this facility use at least one of these dose optimization techniques: automated exposure control; mA and/or kV adjustment per patient size (includes targeted exams where dose is matched to clinical indication); or iterative reconstruction. Contrast material: ISO 370; Contrast volume: 100 ml; Contrast route: IV; COMPARISON: CT ABD/PEL W/PO CONTRAST ONLY 09/08/2018 2:28 AM FINDINGS: Lungs: Subpleural atelectasis noted in the anterior basal segment of the left lower lobe. Pleural space: This is small pleural effusion at the right lung base with compression atelectasis predominantly involving the medial basal segment of the right lower lobe. Liver: There is a heterogeneously enhancing mass contiguous with the capsule of the right lobe of the liver posteriorly. The mass measures approximately 11 cm superior to inferior by 6.1 cm transversely by 6.4 cm anterior posterior. Gallbladder and bile ducts: The wall of the gallbladder is calcified. Pancreas: Normal. No ductal dilation. Spleen: There is a heterogeneous solid and cystic mass noted interposed between the spleen and the left hemidiaphragm posteriorly. The mass measures 5.9 x 3 x 5 cm. Adrenals: Normal. No mass. Kidneys and ureters: Normal. No hydronephrosis. Stomach and bowel: There is a large diaphragmatic hernia containing most of the stomach and transverse colon. Sigmoid colonic diverticulosis. Appendix: No evidence of appendicitis. Intraperitoneal space: Complex cystic mass noted within the pelvis predominantly to the right of midline measuring 10 x 7.1 x 7.5 cm. Hazy density noted within the mesentery in the left hemipelvis anteriorly. Vasculature: Normal. No abdominal aortic aneurysm. Lymph nodes: Normal. No enlarged lymph nodes. Bladder: Unremarkable as visualized. Reproductive: There's a pessary in place in the vagina The uterus is not clearly from the above-described mass Bones/joints: There is a dextroscoliosis of the lumbar spine with advanced secondary degenerative changes particularly at the lumbosacral junction and at T12-L1. Moderately advanced facet arthropathy and degenerative changes between the spinous processes of the lumbar spine. Soft tissues: Unremarkable. IMPRESSION: 1. Mass noted adjacent to the liver capsule on the right posteriorly with a second mass located in the the left upper quadrant interposed between the diaphragm and the spleen. These are likely metastatic implants are related to a complex solid and cystic mass in the right hemipelvis presumed to be an ovarian carcinoma 2. Large diaphragmatic hernia 3. Calcified gallbladder wall. 4. Small right pleural effusion with subsegmental atelectasis at both lung bases. 5. Sigmoid colonic diverticulosis. COMMENT: Consistent with the [employer]'s Incidental Findings Committee Report (J Am Linwood Radiol 2010): Unless the patient's specific circumstances suggest otherwise, any liver lesion 0.5 cm or less, any cystic kidney lesion less than 1.0 cm, and/or any adrenal lesion 1.0 cm or less not otherwise characterized in this report as possessing suspicious or indeterminate imaging features is/are highly likely to be benign and do not require follow-up imaging or biopsy. Electronically signed by: Sonal Martinez On 09/08/2018 19:56:08 PM
[2018-09-08 20:45] VITALS: BP 122/72
[2018-09-08] MEDS ORDERED: ATORVASTATIN 10 MG TAB PO SCH (21:00)
[2018-09-09] MEDS: SYMBICORT 160/4.5MCG INHALER 6GM INH SCH ×2 (02:48→08:07)
[2018-09-09 04:00] VITALS: BP 119/62
[2018-09-09 05:44] LABS: HEMATOCRIT 41.2 % (36.0-47.0); HEMOGLOBIN 13.4 g/dl (12.0-15.5); MEAN CORPUSCULAR HEMOGLOBIN 30.3 pg (27.0-33.0); MEAN CORPUSCULAR HGB CONC 32.5 g/dl (32.0-36.5); MEAN CORPUSCULAR VOLUME 93.2 fl (80.0-96.0); PLATELET COUNT, AUTOMATED 286 10^3/uL (150-450); RED BLOOD COUNT 4.42 10^6/uL (4.00-5.40); WHITE BLOOD COUNT 7.5 10^3/uL (4.0-10.0)
[2018-09-09 06:09] LABS: ALBUMIN 2.6 GM/DL (3.2-5.2); ALT/SGPT 12 U/L (12-78); BILIRUBIN,TOTAL 0.8 MG/DL (0.2-1.0); BLOOD UREA NITROGEN 17 MG/DL (7-18); CALCIUM LEVEL 8.7 MG/DL (8.8-10.2); CARBON DIOXIDE LEVEL 30 MEQ/L (21-32); CHLORIDE LEVEL 101 MEQ/L (98-107); CREATININE FOR GFR 0.64 MG/DL (0.55-1.30); GLOMERULAR FILTRATION RATE > 60.0 (>32); GLUCOSE, FASTING 88 MG/DL (70-100); MAGNESIUM LEVEL 2.3 MG/DL (1.8-2.4); POTASSIUM SERUM 3.8 MEQ/L (3.5-5.1); SODIUM LEVEL 136 MEQ/L (136-145); TOTAL PROTEIN 7.5 GM/DL (6.4-8.2)
[2018-09-09] MEDS: ENOXAPARIN 40 MG/0.4 ML SYRINGE (J1650) SC SCH (09:27)
[2018-09-09] MEDS: VITAMIN D 1,000 INTERNATIONAL UNITS TABLET PO SCH (09:27)
[2018-09-09] MEDS: OMEPRAZOLE 20 MG CAP PO SCH (09:28)
[2018-09-09] MEDS: LEVOTHYROXINE 50MCG TABLET (0.05MG) PO SCH (09:28)
[2018-09-09 09:29] VITALS: BP 119/62
[2018-09-09] MEDS: amLODIPine 5 MG TAB PO SCH (09:29)
--- NOTE | 2018-09-09 12:58 | DS.PDOC ---
Discharge Summary General Date of Admission Sep 08, 2018 at 05:30 Date of Discharge 09/09/2018 Discharge Summary PROCEDURES PERFORMED DURING STAY: [None]. 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 HISTORY OF PRESENT ILLNESS: Patient is an 78-year-old female with a PMHx of HTN, Hypothyroidism, DLP, Asthma, GERD, Hx of R adrenal mass who presented to the ER with complaints of right lower quadrant abdominal pain for 7 days. Patient had reported decreased appetite. 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 She was advised to follow up with general surgeon Dr. Carter and Photographer [employer] Dr. Banegas. . She had followed up with them appropriately and was directed to Dr. Garcia of urology. In the ER, a CT scan of the abdomen/pelvis revealed lobular soft tissue masses in the abdomen and pelvis including a mass which involves the right lobe of the liver and the right adrenal gland, a left subdiaphragmatic mass, and a mass in the pelvis which may originate in or involved the uterus. This is thought to be consistent with a malignancy with an uncertain primary according to the report. The patient will be admitted to the hospitalist service for further evaluation and management. HOSPITAL COURSE: Patient's initial imaging emergency room was CT abdomen and pelvis completed without IV contrast. Patient subsequently had a repeat CT abdomen and pelvis completed with IV contrast at the direction of urology. CT scan of the abdomen had revealed mass noted. Liver The Right Posteriorly Second Mass Located in the Left Upper Quadrant Interposed between the Diaphragm and Spleen. These Are Likely Metastatic Implants Which Are Related to Complex Solid and Cystic Mass in the Right Hemipelvis, Presumed to be an Ovarian Carcinoma. Findings were discussed with surgery, Dr. Guzman, at this point, patient will be referred to gynecologic oncology. I have discussed the findings of the imaging with the patient as well as her daughter, Dayna Chandra. Currently patient is asymptomatic and does not have any abdominal pain. She is able to ambulate without any assistance. Has been tolerating a regular diet and having regular bowel movements. At this point, patient to be safely discharged with outpatient follow-up with gynecologic oncology. Patient and daughter have been provided with contact information with gynecologic oncology at [facility]. I have contacted them for referral instructions. DISCHARGE MEDICATIONS: Please see below. ALLERGIES: Please see below. PHYSICAL EXAMINATION ON DISCHARGE: Vitals (See below) General: Lying in bed, no acute distress, comfortable, AAOx3 HEENT: NC, AT CVS: +S1S2 Lungs: Fair air entry b/l, no appreciable wheezing, rhonchi or rales Abdomen: Soft, ND, non-tender on light palpation, mild tenderness at RLQ on deep palpation Extremities: No evidence of lower extremity edema, - Calf tenderness LABORATORY DATA: Please see below. ACTIVITY: [As tolerated]. DISCHARGE PLAN: Follow-up with primary care provider, Dr. Agueda Cardoza and gynecologic oncology at [facility] within 7 days Remain compliant with treatment plan and medications Return to the ER if you experience any problems DISPOSITION: Home, Self-Care. DISCHARGE CONDITION: [Stable]. TIME SPENT ON DISCHARGE: 40 minutes Vital Signs/I&Os Vital Signs Date Time Temp Pulse Resp B/P (MAP) Pulse Ox O2 Delivery O2 Flow Rate FiO2 09/09/18 09:29 83 119/62 09/09/18 04:00 98.8 16 97 09/08/18 20:35 Room Air I&O- Last 24 Hours up to 6 AM 09/09/18 06:00 Intake Total 400 ml Output Total 0 ml Balance 400 ml Laboratory Data Labs 24H Laboratory Tests 2 09/08/18 14:00: Urine Color YELLOW, Urine Appearance CLOUDYH, Urine pH 6.0, Urine Specific [place] 1.039, Urine Protein 2+H, Urine Glucose (UA) NEGATIVE, Urine Ketones 2+H, Urine Blood NEGATIVE, Urine Nitrite NEGATIVE, Urine Bilirubin NEGATIVE, Urine Urobilinogen 2.0H, Urine Leukocyte Esterase 2+H, Urine WBC (Auto) 21H, Urine RBC (Auto) 4H, Urine Hyaline Casts (Auto) 0, Urine Bacteria (Auto) NEGATIVE, Urine Squamous Epithelial Cells 20, Urine Mucus (Auto) SMALL, Urine Sperm (Auto) 09/09/18 05:15: Nucleated Red Blood Cells % (auto) 0.0, Anion Gap 5L, Glomerular Filtration Rate > 60.0, Blood Urea Nitrogen 17, Creatinine 0.64, Sodium Level 136, Potassium Level 3.8, Chloride Level 101, Carbon Dioxide Level 30, Calcium Level 8.7L, Aspartate Amino Transf (AST/SGOT) 21, Alanine Aminotransferase (ALT/SGPT) 12, Alkaline Phosphatase 77, Total Bilirubin 0.8, Total Protein 7.5, Albumin 2.6L, Magnesium Level 2.3, Albumin/Globulin Ratio 0.53L CBC/BMP Laboratory Tests 09/09/18 05:15 Red Blood Count 4.42, Mean Corpuscular Volume 93.2, Mean Corpuscular Hemoglobin 30.3, Mean Corpuscular Hemoglobin Concent 32.5, Red Cell Distribution Width 13.2, Calcium Level 8.7 L, Aspartate Amino Transf (AST/SGOT) 21, Alanine Aminotransferase (ALT/SGPT) 12, Alkaline Phosphatase 77, Total Bilirubin 0.8, Total Protein 7.5, Albumin 2.6 L Microbiology Microbiology 09/07/18 Blood Culture - Preliminary, Resulted No growth after 24 hours . All specim... 09/07/18 Blood Culture - Preliminary, Resulted No growth after 24 hours . All specim... 09/08/18 Urine Culture - Final, Complete Discharge Medications Scheduled Amlodipine Besylate (Amlodipine Besylate) 5 Mg Tab, 5 MG PO DAILY, (Reported) Aspirin (Aspirin EC) 81 Mg Tablet.dr, 81 MG PO DAILY, (Reported) Atorvastatin Calcium (Atorvastatin Calcium) 10 Mg Tablet, 10 MG PO QHS, (Reported) Bimatoprost (Lumigan) 50 Drop/2.5 Ml Lyudmila, 1 DROP OU QHS, (Reported) Budesonide/Formoterol (Symbicort 160-4.5 Mcg Inhaler) 60 Puff/Inhaler Aers, 2 PUFF INH BID, (Reported) Calcium Carbonate/Vitamin D3 (Calcium 1,000 + D3 Caplet) 1 Tab Tab, 1 TAB PO DAILY, (Reported) Cholecalciferol (Vitamin D3) (Vitamin D3) 1,000 Unit Tablet, 1,000 UNIT PO DAILY, (Reported) Clobetasol Propionate/Emoll (Clobetasol Emollient 0.05% Crm) 0.05 % Cre, 1 DOSE TOP DAILY, (Reported) APPLIES TO GROIN Estradiol (Estring) 2 Mg Vag.ring, 1 RING PV Q3M, (Reported) Levothyroxine Sodium (Synthroid) 50 Mcg Tablet, 50 MCG PO DAILY, (Reported) Omeprazole (Omeprazole) 40 Mg Capsule., 40 MG PO DAILY, (Reported) Scheduled PRN Albuterol Sulfate (Proair Hfa) 108 Mcg/Act Aer, 2 PUFF INH Q4H PRN for SHORTNESS OF BREATH, (Reported) Olopatadine HCl (Olopatadine HCl) 0.2 % Lyudmila, 1 DROP OU QHS PRN for ITCHING, (Reported) Allergies Coded Allergies: No Known Allergies (Unverified , 09/07/18) AHSAN WALDROP MD Sep 09, 2018 12:58
== END 2018-09-09 12:42 | disposition home or self-care (01) | DRG 755 ==
LOC: M ED 21:35 → M ED INP 09-08 05:30 → M PCU 09-08 20:45
PROVIDERS: ADMIT Internal Medicine; ATTEND Internal Medicine
DX: C56.1 Malignant neoplasm of right ovary (principal); C78.7 Secondary malignant neoplasm of liver and intrahepatic bile duct; C79.89 Secondary malignant neoplasm of other specified sites; C79.71 Secondary malignant neoplasm of right adrenal gland; I10 Essential (primary) hypertension; K21.9 Gastro-esophageal reflux disease without esophagitis; J45.909 Unspecified asthma, uncomplicated; E03.9 Hypothyroidism, unspecified; E78.5 Hyperlipidemia, unspecified; Z79.82 Long term (current) use of aspirin; Z79.899 Other long term (current) drug therapy

== ENCOUNTER → 2018-09-07 | Outpatient (CLI) | payer MEDICARE ==
[~2018-09-07] MED LIST changes: +ISOVUE-370 76% 100ML VIAL (Q9967) As Ordered ONE
--- NOTE | 2018-09-07 19:19 | REP ---
CT of the chest with IV contrast: The patient has a known right adrenal mass. There are no lung masses or nodules. There is a small right pleural effusion. There is a huge eventration of the left hemidiaphragm with herniation of the stomach and transverse colon into the chest. This is unchanged. There is atelectasis in both right and left lower lobes adjacent to the huge abdominal herniation. This is unchanged. There is no mediastinal or hilar lymph node enlargement. The mediastinal azygos node is upper normal size measuring 9.3 mm short axis. There is no axillary lymph node enlargement. The thoracic aorta is unremarkable. Cardiac size is normal. Upper abdomen: The right adrenal mass appears to have invaded the liver. Adjacent to this there is another large a hypodense liver lesion. This is unchanged. There is a porcelain gallbladder, unchanged. There is a peritoneal mass lateral to the spleen that is increased in size, today measuring up to 6.2 cm, previously 5.5 cm. Impression: There are no lung masses or nodules. There is no adenopathy. There is a small right pleural effusion. There is marked diaphragmatic eventration with herniation of the stomach and transverse colon in the chest. There is bibasilar atelectasis as a result of this herniation. Porcelain gallbladder, unchanged. The right adrenal mass has invaded the liver. There is another large hypodense lesion in the right lobe of the liver adjacent to the mass. There is a mass lateral to the spleen has increased in size. Electronically Signed by Dougie Marina MD 09/07/2018 07:10 P
== END ==
LOC: M RAD 17:32
PROVIDERS: ATTEND Urology
DX: J90 Pleural effusion, not elsewhere classified (principal); J98.11 Atelectasis; E27.8 Other specified disorders of adrenal gland